=== PATIENT | male | born 1950 | race Caucasian/White ===

== ENCOUNTER 2024-03-22 07:15 | Emergency (ER) | payer MEDICARE, OTHER, SELFPAY ==
--- NOTE | ~2024-03-22 | XR_ITS ---
EXAMINATION: XR chest 2V DATE: 03/22/2024 08:34 INDICATION: Weakness and dizziness TECHNIQUE: frontal and lateral views of the chest were obtained. COMPARISON: Chest radiograph dated 06/23/2010 FINDINGS: The lungs remain clear with no focal airspace opacities, pulmonary edema, pleural effusion or pneumot horax. The cardiomediastinal silhouette is normal. Mild thoracic spondylosis. IMPRESSION: 1. No acute cardiopulmonary disease. Reviewed, dictated and finalized at location A.
[2024-03-22 07:15] VITALS: BP 164/75; PULSE 70; RESP 20; TEMP 36.4; O2SAT 100
--- NOTE | 2024-03-22 07:20 | ED.AMS ---
HPI - Altered Mental Status General Chief Complaint: Altered Mental Status Stated Complaint: ams Time Seen by Provider: 03/22/24 07:18 Source: patient and EMS Mode of arrival: EMS Limitations: no limitations History of Present Illness HPI narrative: 74 years old white male lives alone, came to the ED by ambulance because not feeling well and feeling tired for the last 2 days. Patient quit taking his diabetes medicine 4 weeks ago, diet controlled, 2 days ago found that his blood glucose went up to 300, start taking his diabetes medicine, today was 170. Patient denies any fever, chills, nausea, vomiting, chest pain, shortness of breath, headache, numbness, tingling or focal neuro deficit. Patient's friend at the bedside telling me that patient have trouble sleeping and would like me to give him some sleeping pills. Related Data Home Medications Medication Instructions Recorded Confirmed No Home Medications 01/08/20 05/06/20 Allergies Allergy/AdvReac Type Severity Reaction Status Date / Time No Known Allergies Allergy Verified 03/22/24 07:34 Review of Systems Review of Systems: All systems reviewed & are unremarkable except as noted in HPI and below PMFSH Past Medical History Medical History (Updated 03/22/24 @ 09:20 by Sherine Peres MD) Borderline diabetes per pt on the brink Pyloric stenosis (~195) Surgical History Surgical History H/O removal of cyst (~2001) hand and head 2001 H/O: vasectomy (~1999) History of ankle surgery (~2008) ORIF right, 2009 vega Family History Family History Mother Diabetes mellitus Cancer Heart disease Kidney disease Father Cancer Grandparent Cerebrovascular accident Heart disease Social History Social History Smoking status: Never smoker Alcohol intake: never Living arrangements: alone Occupation/Education: retired Additional occupation/education comments: [employer]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 Musculoskeletal: Normal range of motion, nontender back Neurologic: Alert and oriented ?3, TERRAZZO WORKER HELPER is normal as tested, no gross motor deficit Course Vital Signs Vital signs: Vital Signs Temperature 36.4 C L 03/22/24 07:15 Pulse Rate 70 03/22/24 07:15 Respiratory Rate 20 03/22/24 07:15 Blood Pressure 164/75 H 03/22/24 07:15 Pulse Oximetry 100 03/22/24 07:15 Oxygen Delivery Room Air 03/22/24 07:15 Temperature 36.4 C L 03/22/24 07:15 Pulse Rate 61 03/22/24 08:48 Respiratory Rate 16 03/22/24 08:48 Blood Pressure 154/72 H 03/22/24 08:48 Pulse Oximetry 98 03/22/24 08:48 Oxygen Delivery Room Air 03/22/24 07:15 MDM - Altered Mental Status MDM Narrative Medical decision making narrative: Differential diagnosis include uncontrolled diabetes, electrolyte imbalance, dehydration, urinary tract infection, stress related symptoms and depression Blood workup today showed blood glucose of 178, otherwise insignificant abnormality to explain patient tiredness. EKG on arrival to the ED showed normal s
--- NOTE | 2024-03-22 07:22 | ECG_ITS ---
Test Date: 2024-03-22 07:26:02 Measurements Intervals [place] Rate: 64 P: 47 MA: 169 QRS: -45 QRSD: 114 T: 14 QT: 394 QTc: 407 Interpretive Statements SINUS RHYTHM LEFT AXIS DEVIATION INCOMPLETE LEFT BUNDLE BRANCH BLOCK PATTERN CONSISTENT WITH PULMONARY DISEASE BASELINE ARTIFACT- I, II, AVR, AVL, AVF ABNORMAL ECG No previous ECG available for comparison Electronically Signed On 03-22-2024 12:41:27 CDT by Francisco J Antunez D.O.
[2024-03-22 07:33] VITALS: PULSE 70
[2024-03-22 07:52] LABS: Basophils Absolute Auto 0.1 K/mm3 (0.0-0.1); Basophils Percent Auto 1.7 % (0.2-1.2); Eosinophils Absolute Auto 0.6 K/mm3 (0-0.3); Eosinophils Percent Auto 9.3 % (0-4.4); Hematocrit 37.4 % (42.0-52.0); Immature Granulocyte Absolute 0.04 K/mm3 (0.00-0.031); Immature Granulocyte Percent A 0.7 % (0-0.5); Lymphocytes Percent Auto 14.9 % (18.3-44.2); Mean Corpuscular HGB Conc 34.8 g/dl (32-36); Mean Corpuscular Hemoglobin 29.3 pg (26-34); Mean Corpuscular Volume 84.4 fl (80-100); Mean Platelet Volume 9.4 fl (7.4-10.4); Monocytes Absolute Auto 0.5 K/mm3 (0.1-0.6); Monocytes Percent Auto 8.6 % (2.6-8.5); Neutrophils Absolute Auto 3.9 K/mm3 (1.3-6.7); Neutrophils Percent Auto 64.8 % (45.5-73.1); Platelet Count Result 244 k/mm3 (150-375); Red Blood Count 4.43 M/mm3 (4.6-6.20); Red Cell Distribution Width 13.4 % (11.5-14.5); White Blood Count 6.1 K/mm3 (4.5-10.0)
[2024-03-22 08:21] LABS: Alanine Aminotransferase 22 U/L (6-50); Albumin Level 4.2 g/dL (3.5-5.1); Alkaline Phosphatase 82 U/L (38-126); Anion Gap 12 mmol/L (4-12); Aspartate Amino Transferase 22 U/L (17-59); Bilirubin,Total 0.8 mg/dL (0.2-1.3); Blood Urea Nitrogen 24 mg/dL (9-20); Calcium 9.3 mg/dL (8.4-10.2); Carbon Dioxide 21 mmol/L (22-30); Chloride 106 mmol/L (98-107); Estimated CRCL calculation 83 ml/min; Estimated Glomerular Filt Rate > 60; Glucose 178 mg/dL (65-110); Sodium 139 mmol/L (137-145)
[2024-03-22 08:48] VITALS: BP 154/72; PULSE 61; RESP 16; O2SAT 98
[2024-03-22 08:56] LABS: Troponin I < 0.012 ng/mL (0.000-0.034)
[2024-03-22 09:01] LABS: Appearance Urine Clear (Clear); Bilirubin Urine Negative (Negative); Blood Urine Negative (Negative); Color Urine Yellow (Yellow); Glucose Urine UA Negative (Negative); Ketones Urine Negative (Negative); Leukocyte Esterase Ur Negative LEU/UL (Negative); Nitrate Urine Negative (Negative); Protein Urine Negative (Negative); Specific Grav Ur 1.016 (1.001-1.035)
[2024-03-22 09:07] LABS: Add Urine Microscopic? NO
[2024-03-22 09:23] VITALS: BP 142/91; PULSE 70; RESP 18; O2SAT 100
[2024-03-22 10:24] LABS: Glucose Point of Care 183 mg/dl (65-105)
== END 2024-03-22 10:20 | disposition home or self-care (01) ==
PROVIDERS: Emergency Provider Emergency Medicine; PCP Family Medicine
DX: R53.1 Weakness (principal); G47.00 Insomnia, unspecified; E11.9 Type 2 diabetes mellitus without complications; I44.7 Left bundle-branch block, unspecified; R94.31 Abnormal electrocardiogram [ECG] [EKG]
CPT/HCPCS: 36415; 71046; 80053; 81003; 82948; 84484; 85025; 93005; 99284

== ENCOUNTER 2025-03-27 14:33 | Emergency (ER) | payer OTHER, MEDICARE, SELFPAY ==
[2025-03-27] VITALS (21 sets, daily range): BP systolic 114–156; BP diastolic 60–86; PULSE 58–88; RESP 12–20; TEMP 36.4; O2SAT 92–100
--- NOTE | ~2025-03-27 | XR_ITS ---
. EXAMINATION: XR chest 2V 03/27/2025 15:07 INDICATION: Chest pain PROCEDURE: 2 view chest COMPARISON: 03/22/2024 FINDINGS: The lungs are clear. The cardiomediastinal silhouette is within normal limits. There are no pleural effusions. There is no pneumothorax suspected. IMPRESSION: 1: NO ACUTE CARDIOPULMONARY DISEASE. Reviewed, dictated and finalized at location B.
--- NOTE | 2025-03-27 14:37 | ECG_ITS ---
Test Date: 2025-03-27 14:46:39 Measurements Intervals [place] Rate: 65 P: 0 RI: 167 QRS: -55 QRSD: 114 T: -35 QT: 399 QTc: 415 Interpretive Statements SINUS RHYTHM INCOMPLETE LEFT BUNDLE BRANCH BLOCK Compared to ECG 03/22/2024 07:26:02 NO SIGNIFICANT CHANGES Electronically Signed On 03-27-2025 14:52:47 CDT by Ruiz Reed M.D.
--- OUTSIDE RECORDS SUMMARY | 2025-03-27 14:45 | XMS_ITS | Encounter Summary ---
Author Organization [facility] Address [address] [place] [address] Phone Care Team Providers Care Decorating Consultant Name Role Phone Natividad Almanza APRN, RISK TECH Primary Care Provid er Ludy Arnold RN Unavailable Unavailable Lázaro Saxena DO Unavailable [phone] Reason for Visit * Reason Comments Medication Refill Encounter Details Date Type Department Care Team (Late st Contact Info) Description 08/18/2023 Refill [facility] [address] [place] [address] Lázaro Saxena, DO [address] [place] [address] Medication Refill Social History Tobacco Use Types Packs/Day Years Used Date Smoking Tobacco: Never Smokeless Tobacco: Never Alcohol Use Standard Drinks/Week Comments Never 0 (1 standard drink = 0.6 oz pur e alcohol) PHQ-2 Answer Date Recorded Total Score - Questions 1-9 0 09/0 02/2022 Sex and Gender Information Value Date Recorded Sex Assigned at Male 04/25/2023 8:39 AM CDT Legal Sex Male 3:54 PM POWER BARKER OPERATOR Gender Identity Male 04/25/2023 8:39 AM CDT Sexual Orientation Not on file documented as of this encounter Miscellaneous Notes * Telephone Encounter - Carleen Ortega RN - 08/18/2023 8:15 AM CST Refill request from pharmacy. Please fill if appropriate. R BARKER OPERATOR documented in this encounter Plan of Treatment Not on file documented as of this encounter Visit Diagnoses Not on filedocumented in this encounter Care Teams Decorating Consultant Relationship Specialty Start Date End Date Natividad Almanza, ROADING ENGINEER, RISK TECH [address] [place] [address] PCP - General Advanced Practice Nurse 09/13/21 Ludy Arnold, [place] Oncology Nurse Navigator Oncology 10/04/21 Lázaro Saxena DO [address] [facility] [place] [id number] Consulting Physician Oncology 02/28/23 documented as of this encounter
--- OUTSIDE RECORDS SUMMARY | 2025-03-27 14:45 | XMS_ITS | Encounter Summary ---
Author Organization [facility] Address [address] [place] [address] Phone Care Team Providers Care Transportation Clerk Name Role Phone Natividad Almanza APRN, TARE MAN Primary Care Provid er Ludy Arnold RN Unavailable Unavailable Lázaro Saxena DO Unavailable [phone] Reason for Visit * Reason Comments Medication Refill Encounter Details Date Type Department Care Team (Late st Contact Info) Description 11/25/2023 Refill [facility] [place] [address] [place] [address] Lázaro Saxena, DO [address] [place] [address] Medication Refill Social History Tobacco [...] AM CDT Legal Sex Male 3:54 PM 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 Please fill if appropriate. documented in this encounter Plan of Treatment Not on file documented as of this encounter Visit Diagnoses Not on filedocumented in this encounter Care Teams Transportation Clerk Relationship Specialty Start Date End Date Natividad Almanza APRN, TARE MAN [address] [place] [address] PCP - General Advanced Practice Nurse 09/13/21 Ludy Arnold RN [place] Oncology Nurse Navigator Oncology 10/04/21 Lázaro Saxena DO [address] [place] [id number] Consulting Physician Oncology 02/28/23 documented as of this encounter
--- OUTSIDE RECORDS SUMMARY | 2025-03-27 14:45 | XMS_ITS | Encounter Summary ---
Author Organization [facility] Address [address] [place] [address] Phone Care Team Providers Care Stem Roller Operator Name Role Phone Natividad Almanza APRN, LITHOGRAPHIC RETOUCHER APPRENTICE Primary Care Provid er Ludy Arnold RN Unavailable Unavailable Lázaro Saxena DO Unavailable [phone] Reason for Visit * Reason Comments Medication Refill Encounter Details Date Type Department Care Team (Late st Contact Info) Description 03/01/2023 Refill [facility] [place] [address] [place] [address] Tomasa Figueroa, PAC Medication Refill Social History Tobacco Use Types [...] AM CDT Legal Sex Male 3:54 PM SAP BUSINESS INTELLIGENCE CONSULTANT Gender Identity Male 04/25/2023 8:39 AM CDT Sexual Orientation Not on file COVID-19 Exposure Response Date Recorded In the last 10 days, have yo u been in contact with someone who was confirmed or suspected to have Coronavirus/COVID-19? No / Unsure 02/28/2023 7:56 AM CDT documented as of this encounter Miscellaneous Notes * Telephone Encounter - Carleen Ortega RN - 03/01/2023 9:49 AM CDT Refill request from pharmacy. Please fill if appropriate. documented in this encounter Plan of Treatment Not on file documented as of this encounter Visit Diagnoses Not on filedocumented in this encounter Care Teams Stem Roller Operator Relationship Specialty Start Date End Date Natividad Almanza, WHEEL PRESS CLERK, LITHOGRAPHIC RETOUCHER APPRENTICE [address] [place] [address] PCP - General Advanced Practice Nurse 09/13/21 Ludy Arnold RN [place] Oncology Nurse Navigator Oncology 10/04/21 Lázaro Saxena DO [address] [place] [address] Consulting Physician Oncology 02/28/23 documented as of this encounter
--- OUTSIDE RECORDS SUMMARY | 2025-03-27 14:45 | XMS_ITS | Clinical Summary ---
Author Organization [facility] Address [address], [facility] [address] [place] [address] Phone Care Team Providers Care Carbonator Name Role Phone Natividad Almanza APRN, LEGAL EXAMINER Primary Care Provid er Ludy Arnold RN Unavailable Unavailable Lázaro Saxena DO Unavailable [phone] Allergies Active Allergy Reactions Criticality Noted Date Comments Rosuvastatin Other (see Comments) Medium 08/02/2021 Leg cramps Medications aspirin EC 81 MG Tablet Delayed Response Take 81 mg by mouth daily. Active lisinopril (PRINIVIL, ZESTRIL) 5 MG Tablet 05/03/2022 Active phenazopyridine (PYRIDIUM) 100 MG Tablet TAKE 1 TABLET BY MOUTH THREE TIMES DAILY NEEDED FOR PAIN 05/31/2022 Active metFORMIN (GLUCOPHAGE-XR) 500 MG TABLET SR 24 HR 500 mg daily. 09/27/2022 Activ e tolterodine (DETROL LA) 4 MG CAPSULE SR 24 HR 11/29/2022 Active OneTouch Ultra Strip USE TO CHECK BLOOD SUGAR EVERY MORNING AND EVERY NIGHT AT BEDTIME AND ALSO BEFORE EACH MEAL 04/14/2023 Active CINNAMON PO Take by mouth. Active predniSONE (DELTASONE) 5 MG TabletIndicatio ns:Prostate cancer (HCC) TAKE 1 TABLET BY MOUTH TWICE DAILY WITH FOOD 60 Tablet 3 07/04/2023 Active glipiZIDE (GLUCOTROL XL) 10 MG TABLET SR 24 HR 06/25/2023 Active abiraterone (ZYTIGA) 250 MG TabletIndicatio ns:Prostate cancer (HCC) TAKE 4 TABLETS BY MOUTH 1 TIME A DAY 120 Tablet 4 08/16/2023 Active tamsulosin (FLOMAX) 0.4 MG Capsule TAKE 2 CAPSULES BY MOUTH DAILY 60 Capsule 1 11/25/2024 Active Active Problems Problem Noted Date Diagnosed Date Prostate cancer 09/21/2021 Hx of transient ischemic attack (TIA) 08/02/2021 Diabetes mellitus 02/02/2021 Hypertension 11/03/2020 Transient alteration of awareness 05/31/2020 Overview (12/27/2021): Last Assessment & Plan: Patient experienced a recent transient alteration of awareness lasting about 30 minutes. By the time he had presented to [facility] he has his sensorium it normalized. During his hospitalization he underwent cerebrovascular and cardiovascular evaluations in addition to EEG, CT, and MRI all of which was normal. He remained cognitively normal during his hospitalization. He was ultimately discharged home on treatment for hypertension hypercholesterolemia and an aspirin daily which he has continued since and has remained asymptomatic. From review of his [facility] records it appears that there was suspicion that he may have had a TIA. At this time he enjoys a normal neurological examination. I would recommend continuing his present medical regimen at this time. I will see him back in the office as needed. Hyperglycemia 05/31/2020 Hypercholesterolemia 05/31/2020 Immunizations Immunization Administration Dates Next Due Influenza, High-dose, Quadrivalent 06/17/2023 Influenza, Quadrivalent, Adjuvanted 06/16/2022,1 Pneumococcal conjugate PCV20 , polysaccharide [id number] conjugate, adjuvant, PF 06/27/2022 TDAP Vaccine 05/06/2021 Zoster Vaccine Recombinant 07/27/2021,05/24/2021 Family History Medical History Relation Name Comments Lung Cancer Brother 1 Prostate Cancer Father Heart Disease Maternal Grandfather Stroke Maternal Grandfather Congestive Heart Failure Maternal Grandmother Congestive Heart Failure Mother Diabetes Mother Heart Attack Paternal Grandfather Parkinsonism Paternal Grandmother Rheumatoid Arthritis Sister Relation Name Status Comments Brother 1 Brother 2 Other suicide Father Maternal Grandfather Maternal Grandmother Mother Paternal Grandfather Paternal Grandmother Sister Social History Tobacco Use Types Packs/Day Years Used Date Smoking Tobacco: Never Smokeless Tobacco: Never Tobacco Cessation:Counseling Given: Not Answered Alcohol Use Standard Drinks/Week Comments Never 0 (1 standard drink = 0.6 oz pur e alcohol) PHQ-2 Answer Date Recorded Total Score - Questions 1-9 0 02/2022 Sex and Gender Information Value Date Recorded Sex Assigned at Male 04/25/2023 8:39 AM CDT Legal Sex Male 3:54 PM EXTERMINATOR HELPER Gender Identity Male 04/25/2023 8:39 AM CDT Sexual Orientation Not on file Last Filed Vital Signs Vital Sign Reading Time Taken Comments Blood Pressure 138/70 10/10/2023 8:11 AM EXTERMINATOR HELPER Pulse 89 10/10/2023 8:11 AM EXTERMINATOR HELPER Temperature 36.3 C (97.3 F) 10/10/2023 8:11 AM EXTERMINATOR HELPER Respiratory Rate 18 10/10/2023 8:11 AM EXTERMINATOR HELPER Oxygen Saturation 97% 10/10/2023 8:11 AM EXTERMINATOR HELPER Inhaled Oxygen Concentration - - Weight 101.2 kg (223 lb 3.2 oz) 10/10/2023 8:11 AM EXTERMINATOR HELPER Height 177.8 cm (5' 10) 10/10/2023 8:11 AM EXTERMINATOR HELPER Body Mass Index 32.03 10/10/2023 8:11 AM EXTERMINATOR HELPER Plan of Treatment Health Maintenance Due Date Last Done Comments Diabetes: Eye Exam 1950 Diabetes: Foot Exam 1950 Hepatitis C Virus (HCV) Screening 1950 Cologuard 02/13/1996 Colonoscopy 02/13/1996 Colorectal Cancer Screening 02/13/1996 Immunochemical Fecal Occult Blood 02/13/1996 Respiratory Syncytial Virus (RSV) Immunization (Adult) (1 - Risk 60-74 years 1-dose series) 2011 Diabetes: Hemoglobin A1c 01/09/202407/10/2 023, 03/27/2023, 12/26/2022, Additional history exists SARS-COV-2 Immunization ( season) 2024 06/17/2023, 05/29/2022, 10/18/2021, Additional history exists Diabetes: Nephropathy Screening 10/10/2024 10/10/2023, 09/12/2023, 08/15/2023, Additional history exists Influenza Immunization (#1) 2025 10/0 03/2023, 06/16/2022, 06/19/2021 Td Immunization Every 10 Years (Adults With 1 Tdap) 05/06/2031 05/06/2021 DTaP/Tdap/Td Immunization Discontinued 05/06/2021 Zoster Immunization Completed 07/27/2021, Pneumococcal Immunization (50+ years) Completed 06/27/2022 Hepatitis B Immunization Aged Out No longer eligible based on patient's age to complete this topic Human Papillomavirus (HPV) Immunization Aged Out No longer eligible based on patient's age to complete this topic Meningococcal Immunization (ACWY) Aged Out No longer eligible based on patient's age to complete this topic Rotavirus Immunization Aged Out No lo nger eligible based on patient's age to complete this topic Procedures Procedure Name Priority Date/Time Associated Diagnosis Comments CMP (COMPREHENSIVE METABOLIC PANEL) Routine 10/10/2023 8:02 AM EXTERMINATOR HELPER Prostate cancer (HCC) HEMOGLOBIN A1C [place] 1453 Routine 06/21/2022 9:26 AM CDT from Last 3 Months or Most Recently Relevant to Health Maintenance Results * (ABNORMAL) CMP (COMPREHENSIVE METABOLIC PANEL) (10/10/2023 8:02 AM EXTERMINATOR HELPER) Glucose 204(H) 70 - 105 mg/dL [facility] Blood Urea Nitrogen 21 7 - 25 mg/dL [facility] Creatinine 0.8 0.7 - 1.3 mg/dL [facility] Sodium 143 136 - 145 mEq/L [facility] Potassium 4.4 3.5 - 5.1 mEq/L [facility] Chloride 105 98 - 107 mEq/L [facility] Bicarbonate 31 21 - 31 mEq/L [facility] Total Bilirubin 0.4 0.3 - 1.0 mg/dL [facility] Alk. Phosphatase 71 34 - 104 U/L [facility] Aspartate Aminotransferase 9(L) 13 - 39 U/L [facility] Alanine Aminotransferase 10 7 - 52 U/L [facility] Total Protein 6.3(L) 6.4 - 8.9 g/dL [facility] Albumin 3.7 3.5 - 5.7 g/dL [facility] Calcium 9.0 8.6 - 10.3 mg/dL CANCER INDUSTRIAL SALES REPRESENTATIVE ON LICENSE OF [facility] Anion Gap 11.4 7.0 - 15.0 mEq/L CANCER INDUSTRIAL SALES REPRESENTATIVE ON LICENSE OF [facility] Globulin 2.6 2.0 - 3.5 g/dL CANCER INDUSTRIAL SALES REPRESENTATIVE ON LICENSE OF [facility] EGFR 94 >60 ml/min/1. 73m2 CANCER INDUSTRIAL SALES REPRESENTATIVE ON LICENSE OF [facility] Comment: This eGFR is calculated using 2020 CKD-EPI Creatinine equation without race modifier based on the NKF-ASN task force recommendations Blood 10/10/2023 8:02 AM EXTERMINATOR HELPER Narrative CANCER INDUSTRIAL SALES REPRESENTATIVE ON LICENSE OF [facility] - 10/10/2023 9:00 AM EXTERMINATOR HELPER Release to patient->Immediate IS THE PATIENT REQUIRED TO BE FASTING FOR 8 HOURS?->No Lyly Acharya APRN, LEGAL EXAMINER CHEMISTRY ORDERABLES Final Result Performing Organization Address [facility] Co de Phone Number CANCER INDUSTRIAL SALES REPRESENTATIVE ON LICENSE OF [facility] [address] [place] [address], * (ABNORMAL) HEMOGLOBIN A1C [place] 1453 (06/21/2022 9:26 AM CDT) HEMOGLOBIN A1C 7.5(H) 4.8 - 5.6 % [facility] Comment: PREDIABETES: 5.7 - 6.4 DIABETES: >6.4 GLYCEMIC CONTROL FOR ADULTS WITH DIABETES: <7.0 06/21/2022 9:26 AM CDT Narrative [facility] - 06/22/2022 4:06 AM CDT TESTING PERFORMED AT: [] [facility], [address] [place] [address], [place], [address], PHONE: [phone], VAC PRESS OPERATOR: EDISON GARCÍA, PHD us Lázaro Saxena DO LAB SEND OUTS Final Result [facility] from Last 3 Months or Most Recently Relevant to Health Maintenance Insurance MEDICARE [facility] [id number] Advance Directives * Full Code (Latest Code Status on File) Date Activated Date Inactivated Comments 09/28/2021 9:00 AM PER 09/21/21 OF FICE VISIT NOTE. Care Teams Carbonator Relationship Specialty Start Date End Date Natividad Almanza, APPLICATION PACKAGING SPECIALIST, LEGAL EXAMINER [address] [address] PCP - General Advanced Practice Nurse 09/13/21 Ludy Arnold RN [place] Oncology Nurse Navigator Oncology 10/04/21 Lázaro Saxena DO [address] [place] [address] Consulting Physician Oncology 02/28/23
--- OUTSIDE RECORDS SUMMARY | 2025-03-27 14:45 | XMS_ITS | Encounter Summary ---
Author Organization [facility] Address [address] [place] [address] Phone Care Team Providers Care Director Of Investigations Name Role Phone Natividad Almanza APRN, TOOL AND DIE SUPERVISOR Primary Care Provid er Ludy Arnold RN Unavailable Unavailable Lázaro Saxena DO Unavailable [phone] Reason for Visit * Reason Comments Medication Refill Encounter Details Date Type Department Care Team (Late st Contact Info) Description 03/01/2023 Refill [facility] [address] [address] Tomasa Figueroa, PAC Medication Refill Social [...] AM CDT Legal Sex Male 3:54 PM PBX INSTALLER Gender Identity Male 04/25/2023 8:39 AM CDT Sexual Orientation Not on file COVID-19 Exposure Response Date Recorded In the last 10 days, have yo u been in contact with someone who was confirmed or suspected to have Coronavirus/COVID-19? No / Unsure 02/28/2023 7:56 AM CDT documented as of this encounter Plan of Treatment Not on file documented as of this encounter Visit Diagnoses Not on filedocumented in this encounter Care Teams Director Of Investigations Relationship Specialty Start Date End Date Natividad Almanza APRN, TOOL AND DIE SUPERVISOR [address] [place] [address] PCP - General Advanced Practice Nurse 09/13/21 Ludy Arnold RN [place] Oncology Nurse Navigator Oncology 10/04/21 Lázaro Saxena DO [address] [place] [id number] Consulting Physician Oncology 02/28/23 documented as of this encounter
--- OUTSIDE RECORDS SUMMARY | 2025-03-27 14:45 | XMS_ITS | Encounter Summary ---
Author Organization [facility] Address [facility] [place] [address] Care Team Providers Care Web Site Developer Name Role Phone Natividad Almanza NP Primary Care Provider [phone] Lázrao Saxena DO Unavailable [phone] Carmelo Kent MD Unavailable Lázaro Saxena DO Unavailable Encounter Details Date Type Department Care Team (Late st Contact Info) Description 02/24/2022 STARFACE Message [facility] - [place] [address] [facility] [address] [place], [place] [phone] Natividad Almanza NP [address] [place], [place] [address] Follow up on lab results Social History Tobacco Use Types Packs/Day Years Used Date Smoking Tobacco: Never Smokeless Tobacco: Never Comments:The provider can pr ovide you with more information about quitting. Alcohol Use Standard Drinks/Week Comments Not Currently 0 (1 standard drink = 0.6 oz pur e alcohol) PHQ-2 Answer Date Recorded PHQ-2 Score - If the patient scores above 3, please move on to questions 3-9 0 09/07/2021 Sex and Gender Information Value Date Recorded Sex Assigned at Male 11/12/2024 7:19 AM CULTURAL ANTHROPOLOGY PROFESSOR Legal Sex Male 4:09 PM CULTURAL ANTHROPOLOGY PROFESSOR Gender Identity Not on file Sexual Orientation Not on file COVID-19 Exposure Response Date Recorded In the last 10 days, have yo u been in contact with someone who was confirmed or suspected to have Coronavirus/COVID-19? No / Unsure 02/03/2022 10:45 AM CDT documented as of this encounter Plan of Treatment Upcoming Encounters Date Type Department Care Team (Late st Contact Info) Description 05/14/2025 8:00 AM CDT Office Visit [facility] Family [facility] [address] [address] Natividad Almanza NP [address] [place] [address] 08/19/2025 9:30 AM CULTURAL ANTHROPOLOGY PROFESSOR Appointment [facility] Radiation Oncology [address] [place] [address] Carmelo Kent MD [address] [place] [address] [address] [place] [address] 03/24/2026 10:30 AM CDT Office Visit [facility] - [place] [address] [place] [address] Natividad Almanza NP [address] [place] [phone] documented as of this encounter Visit Diagnoses Not on filedocumented in this encounter Additional Health Concerns Assessment Noted Time PHQ-9 Depression Total Score: 0 09/07/20 21 7:57 AM CULTURAL ANTHROPOLOGY PROFESSOR documented as of this encounter Care Teams Web Site Developer Relationship Specialty Start Date End Date Natividad Almanza NP [address] [place] [phone] PCP - General NURSE PRACTITIONER 03/09/21 Lázaro Saxena DO [address] [place] [phone] Consulting Physician MEDICAL ONCOLOGY 09/13/21 10/14/22 Carmelo Kent MD 1 [place] [address] Consulting Physician RADIATION ONCOLOGY 02/06/24 Lázaro Saxena DO 1 [place] [address] Consulting Physician ONCOLOGY 02/13/24 [facility] [address] [place] [address] 02/02/25 documented as of this encounter
--- OUTSIDE RECORDS SUMMARY | 2025-03-27 14:45 | XMS_ITS ---
Author Organization [facility] Address [address], [facility] [address] [place] [address] Phone Care Team Providers Care Credit Authorizer Name Role Phone Natividad Almanza APRN, DATE NIGHT CAREGIVER Primary Care Provid er Ludy Arnold RN Unavailable Unavailable Hemanth Lázaro D DO Unavailable [phone] Active Problems Problem Noted Date Diagnosed Date Prostate cancer 09/21/2021 Hx of transient ischemic attack (TIA) 08/02/2021 Diabetes mellitus 02/02/2021 Hypertension 11/03/2020 Transient alteration of awareness 05/31/2020 Overview (12/27/2021): Last Assessment & Plan: Patient experienced a recent transient alteration of awareness lasting about 30 minutes. By the time he had presented to [facility] he has his sensorium it normalized. During his hospitalization he underwent cerebrovascular and cardiovascular evaluations in addition to EEG, CT, and MRI all of which was normal. He remained cognitively normal during his hospitalization. He was ultimately discharged home on treatment for hypertension hypercholesterolemia and an aspirin daily which he has continued since and has remained asymptomatic. From review of his [facility] records it appears that there was suspicion that he may have had a TIA. At this time he enjoys a normal neurological examination. I would recommend continuing his present medical regimen at this time. I will see him back in the office as needed. Hyperglycemia 05/31/2020 Hypercholesterolemia 05/31/2020 Current Treatment and Therapy Plans [facility]: Leuprolide (Lupron, Eligard) / Triptorelin (Trelstar) - 3 Month - Prostate* Plan Start Date:09/27/2021 Plan Provider:Lázaro Saxena DO Linked Problems Prostate cancer (HCC) Treatment Medications No medications scheduled. PROSTATE - ORAL ABIRATERONE - [facility]* Plan Start Date:09/22/2021 Plan Provider:Lázaro Saxena DO Linked Problems Prostate cancer (HCC) Treatment Medications Current Day (Day 1 , Cycle 5 - Dose increase to 1000mg - Planned for 01/25/2022) Next Day (Day 1, Cycle 6 - Planned for 03/04/2022) abiraterone (ZYTIGA) abiraterone (ZYTIGA ) 250 MG Tablet abiraterone (ZYTIGA) 250 MG Tablet Past Treatment and Therapy Plans ONCOLOGY TREATMENT Plan Name Start Date Discontinue Date Treatment Medications Discontinue Reason Plan Provider Cycles [facility]: Leuprolide (Lupron) / Triptorelin (Trelstar) - 3 Month - Breast 2 09/21/2021 No medications scheduled. Plan Clean Up Lázaro Saxena, Treatment not started
--- OUTSIDE RECORDS SUMMARY | 2025-03-27 14:45 | XMS_ITS | Encounter Summary ---
Author Organization [facility] Address [address] [place] [address] Phone Care Team Providers Care Sap Pi Developer Name Role Phone Natividad Almanza APRN, TUBER MACHINE OPERATOR HELPER Primary Care Provid er Ludy Arnold RN Unavailable Unavailable Lázaro Saxena DO Unavailable [phone] Reason for Visit * Reason Comments Medication Refill Encounter Details Date Type Department Care Team (Late st Contact Info) Description 06/01/2023 Refill [facility] [address] [place] [address] Lázaro Saxena, DO [address] [place] [address] Medication Refill Social History Tobacco [...] AM CDT Legal Sex Male 3:54 PM HISTOLOGY AIDE Gender Identity Male 04/25/2023 8:39 AM CDT Sexual Orientation Not on file COVID-19 Exposure Response Date Recorded In the last 10 days, have yo u been in contact with someone who was confirmed or suspected to have Coronavirus/COVID-19? No / Unsure 05/23/2023 8:32 AM CDT documented as of this encounter Plan of Treatment Not on file documented as of this encounter Visit Diagnoses Not on filedocumented in this encounter Care Teams Sap Pi Developer Relationship Specialty Start Date End Date Natividad Almanza APRN, TUBER MACHINE OPERATOR HELPER [address] [place] [address] PCP - General Advanced Practice Nurse 09/13/21 Ludy Arnold RN [place] Oncology Nurse Navigator Oncology 10/04/21 Lázaro Saxena DO [address] [place] [phone] Consulting Physician Oncology 02/28/23 documented as of this encounter
--- OUTSIDE RECORDS SUMMARY | 2025-03-27 14:45 | XMS_ITS | Clinical Summary ---
Author Organization [facility] Address [address] [place] [address] Phone Care Team Providers Care Pullman Car Repairer Name Role Phone Corby Brown MD Primary Care Provider [phone] Allergies No known active allergies Medications No known medications Active Problems Problem Noted Date Diagnosed Date Transient alteration of awareness 05/31/2020 Hypercholesterolemia 05/31/2020 Elevated serum creatinine 05/31/2020 Hyperglycemia 05/31/2020 Syncope 05/30/2020 Hypertensive emergency Acute confusion Social History Tobacco Use Types Packs/Day Years Used Date Smoking Tobacco: Never Smokeless Tobacco: Never Sex and Gender Information Value Date Recorded Sex Assigned at Not on file Legal Sex Male 6:25 PM CDT Gender Identity Not on file Sexual Orientation Not on file Last Filed Vital Signs Vital Sign Reading Time Taken Comments Blood Pressure 154/85 06/01/2020 2:00 PM CDT Pulse 61 06/01/2020 2:00 PM CDT Temperature 35.9 C (96.7 F) 06/01/2020 7:44 AM CDT Respiratory Rate 16 06/01/2020 7:44 AM CDT Oxygen Saturation 98% 06/01/2020 2:00 PM CDT Inhaled Oxygen Concentration - - Weight 90.7 kg (200 lb) 05/30/2020 6:30 PM CDT Height 182.9 cm (6') 05/30/2020 6:30 PM CDT Body Mass Index 27.12 05/30/2020 6:30 PM CDT Plan of Treatment Health Maintenance Due Date Last Done Comments DTAP/TDAP/TD VACCINES (1 - Tdap) 1970 COLORECTAL SCREENING 02/13/1996 Colorectal Cancer Screening 02/13/1996 FIT-DNA Q 3 years 02/13/1996 FIT/FOBT Q 1 year 02/13/1996 Flex Sig/CT Colonography Q 5 years 02/13/1996 PNEUMOCOCCAL VACCINE 50+ YEARS (1 of 1 - PCV) 02/13/20 ZOSTER VACCINE (1 of 2) 2001 INFLUENZA VACCINE (#1) 2025 RSV VACCINE (60+ or ) (1 - 1-dose 75+ series) 2026 Insurance MEDICARE PART A [place] B [place] [facility] [place] [place] [id number] Advance Directives For more information, please contact: [phone] * Full Code (Latest Code Status on File) Date Activated Date Inactivated Comments 05/31/2020 4:56 AM 06/01/2020 5:20 PM Care Teams Pullman Car Repairer Relationship Specialty Start Date End Date Corby Brown MD [address] [place] [address] PCP - General Family Practice 05/31/20
--- OUTSIDE RECORDS SUMMARY | 2025-03-27 14:45 | XMS_ITS | Encounter Summary ---
Author Organization [facility] Address [address] [place] [address] Phone Care Team Providers Care Boiler Repairman Name Role Phone Natividad Almanza APRN, PROFESSOR OF SPANISH Primary Care Provid er Ludy Arnold RN Unavailable Unavailable Lázaro Saxena DO Unavailable [phone] Reason for Visit * Reason Comments Medication Refill Encounter Details Date Type Department Care Team (Late st Contact Info) Description 07/04/2023 Refill [facility] [address] [place] [phone] Sarah Song, GAURANG, PROFESSOR OF SPANISH [address] [place] [address] Medication Refill Social History Tobacco Use Types [...] AM CDT Legal Sex Male 3:54 PM TRANSPORTATION MAINTENANCE OPERATOR Gender Identity Male 04/25/2023 8:39 AM CDT Sexual Orientation Not on file COVID-19 Exposure Response Date Recorded In the last 10 days, have yo u been in contact with someone who was confirmed or suspected to have Coronavirus/COVID-19? No / Unsure 06/20/2023 8:43 AM CDT documented as of this encounter Miscellaneous Notes * Telephone Encounter - Carleen Ortega, RN - 07/04/2023 7:50 AM CDT Refill request from pharmacy. Please fill if appropriate. documented in this encounter Plan of Treatment Not on file documented as of this encounter Visit Diagnoses Diagnosis Prostate cancer (HCC) Malignant neoplasm of prostate documented in this encounter Care Teams Boiler Repairman Relationship Specialty Start Date End Date Natividad Almanza, MANAGER PEOPLE, PROFESSOR OF SPANISH [address] [place] [address] PCP - General Advanced Practice Nurse 09/13/21 Ludy Arnold RN [place] Oncology Nurse Navigator Oncology 10/04/21 Lázaro Saxena DO [address] [place] [phone] Consulting Physician Oncology 02/28/23 documented as of this encounter
--- OUTSIDE RECORDS SUMMARY | 2025-03-27 14:45 | XMS_ITS | Encounter Summary ---
Author Organization [facility] Address [address] [place] [address] Phone Care Team Providers Care Procedures Nurse Name Role Phone Natividad Almanza APRN, GLOVE OPERATOR Primary Care Provid er Ludy Arnold RN Unavailable Unavailable Lázaro Saxena DO Unavailable [phone] Reason for Visit * Reason Comments Medication Refill Encounter Details Date Type Department Care Team (Late st Contact Info) Description 02/17/2023 Refill [facility] [address] [place] [address] Lázaro Saxena, DO [address] [place] [address] Medication Refill Social History Tobacco [...] AM CDT Legal Sex Male 3:54 PM PRODUCT RESPONSIBILITY LIAISON Gender Identity Male 04/25/2023 8:39 AM CDT Sexual Orientation Not on file COVID-19 Exposure Response Date Recorded In the last 10 days, have yo u been in contact with someone who was confirmed or suspected to have Coronavirus/COVID-19? No / Unsure 01/31/2023 8:00 AM CDT documented as of this encounter Miscellaneous Notes * Telephone Encounter - Carleen Ortega RN - 02/17/2023 7:58 AM CDT Refill request from pharmacy. Please fill if appropriate. documented in this encounter Plan of Treatment Not on file documented as of this encounter Visit Diagnoses Diagnosis Prostate cancer (HCC) Malignant neoplasm of prostate documented in this encounter Care Teams Procedures Nurse Relationship Specialty Start Date End Date Natividad Almanza, PRESCHOOL HEAD TEACHER, GLOVE OPERATOR [address] [place] [address] PCP - General Advanced Practice Nurse 09/13/21 Ludy Arnold RN [place] Oncology Nurse Navigator Oncology 10/04/21 Lázaro Saxena DO [address] [place] [phone] Consulting Physician Oncology 02/28/23 documented as of this encounter
--- OUTSIDE RECORDS SUMMARY | 2025-03-27 14:45 | XMS_ITS | Clinical Summary ---
Author Organization [facility] Address [address] [place] [phone] Care Team Providers Care Business Rules Developer Name Role Phone Corby Brown MD Primary Care Provider [phone] Allergies No known active allergies Medications lisinopriL (PRINIVIL,ZESTR IL) 10 mg tablet TK 1 T PO BID FOR BP 0 Active rosuvastatin (CRESTOR) 5 mg tablet TK 1 T PO D FOR CHOLESTEROL 0 Active aspirin 81 mg enteric coated tablet Take 81 mg by mouth daily Active Active Problems Problem Noted Date Diagnosed Date Transient alteration of awareness 07/21/2020 Assessment & Plan (07/21/2020 3:22 PM DYE AND CHEMICAL COORDINATOR): Patient experienced a recent transient alteration of awareness lasting about 30 minutes. By the time he had presented to [facility] he has his sensorium it normalized. During his hospitalization he underwent cerebrovascular and cardiovascular evaluations in addition to EEG, CT, and MRI all of which was normal. He remained cognitively normal during his hospitalization. He was ultimately discharged home on treatment for hypertension hypercholesterolemia and an aspirin daily which he has continued since and has remained asymptomatic. From review of his [facility] records it appears that there was suspicion that he may have had a TIA. At this time he enjoys a normal neurological examination. I would recommend continuing his present medical regimen at this time. I will see him back in the office as needed. Surgical History Surgery Date Site/Laterality Comments VASECTOMY Medical History Medical History Date Comments Diabetes (HCC) High cholesterol Family History Medical History Relation Name Comments Suicidality Brother 1 Lung cancer Brother 2 Prostate cancer Father Diabetes Mother Heart failure Mother Rheum arthritis Sister Relation Name Status Comments Brother 1 Brother 2 Father Mother Sister Alive Social History Tobacco Use Types Packs/Day Years Used Date Smoking Tobacco: Never Smokeless Tobacco: Never Personal Safety Answer Date Recorded Getting School Help Needed Not on file 11/05 Sex and Gender Information Value Date Recorded Sex Assigned at Not on file Legal Sex Male 12:54 AM DYE AND CHEMICAL COORDINATOR Gender Identity Not on file Sexual Orientation Not on file Obstetrics History Last Filed Vital Signs Vital Sign Reading Time Taken Comments Blood Pressure 118/66 07/21/2020 2:25 PM DYE AND CHEMICAL COORDINATOR Pulse 92 07/21/2020 2:25 PM DYE AND CHEMICAL COORDINATOR Temperature 36.4 C (97.5 F) 07/21/2020 2:25 PM DYE AND CHEMICAL COORDINATOR Respiratory Rate - - Oxygen Saturation - - Inhaled Oxygen Concentration - - Weight 102.8 kg (226 lb 9.6 oz) 07/21/2020 2:25 PM DYE AND CHEMICAL COORDINATOR Height 180.3 cm (5' 11) 07/21/2020 2:25 PM DYE AND CHEMICAL COORDINATOR Body Mass Index 31.6 07/21/2020 2:25 PM DYE AND CHEMICAL COORDINATOR Plan of Treatment Not on file Insurance COMMERCIAL GENERIC MEDICARE MEDICARE COMMERCIAL GENERIC Care Teams Business Rules Developer Relationship Specialty Start Date End Date Corby Brown MD [address] [place] [address] PCP - General Family Medicine 07/21/20
--- OUTSIDE RECORDS SUMMARY | 2025-03-27 14:45 | XMS_ITS | Referral Summary ---
Author Organization [facility] [place] [facility] Address [address] [place] [phone] Care Team Providers Care Box Office Clerk Name Role Phone Corby Brown MD Primary Care Provider [phone] Allergies No known active allergies Medications lisinopriL [...] 07/21/2020 Assessment & Plan (07/21/2020 3:22 PM LANDSCAPE ENGINEER): Patient experienced a recent transient alteration of awareness lasting about 30 minutes. By the time he had presented to [facility] he has his sensorium it normalized. During his hospitalization he underwent cerebrovascular and cardiovascular evaluations in addition to EEG, CT, and MRI all of which was normal. He remained cognitively normal during his hospitalization. He was ultimately discharged home on treatment for hypertension hypercholesterolemia and an aspirin daily which he has continued since and has remained asymptomatic. From review of his [facility] records it appears that there was suspicion that he may have had a TIA. At this time he enjoys a normal neurological examination. I would recommend continuing his present medical regimen at this time. I will see him back in the office as needed. Social History Tobacco Use Types Packs/Day Years Used Date Smoking Tobacco: Never Smokeless Tobacco: Never Personal Safety Answer Date Recorded Getting School Help Needed Not on file 11/05 Sex and Gender Information Value Date Recorded Sex Assigned at Not on file Legal Sex Male 12:54 AM LANDSCAPE ENGINEER Gender Identity Not on file Sexual Orientation Not on file Last Filed Vital Signs Vital Sign Reading Time Taken Comments Blood Pressure 118/66 07/21/2020 2:25 PM LANDSCAPE ENGINEER Pulse 92 07/21/2020 2:25 PM LANDSCAPE ENGINEER Temperature 36.4 C (97.5 F) 07/21/2020 2:25 PM LANDSCAPE ENGINEER Respiratory Rate - - Oxygen Saturation - - Inhaled Oxygen Concentration - - Weight 102.8 kg (226 lb 9.6 oz) 07/21/2020 2:25 PM LANDSCAPE ENGINEER Height 180.3 cm (5' 11) 07/21/2020 2:25 PM LANDSCAPE ENGINEER Body Mass Index 31.6 07/21/2020 2:25 PM LANDSCAPE ENGINEER Plan of Treatment Not on file Insurance COMMERCIAL GENERIC MEDICARE MEDICARE COMMERCIAL GENERIC Care Teams Box Office Clerk Relationship Specialty Start Date End Date Corby Brown MD [address] [place] [phone] PCP - General Family Medicine 07/21/20
--- OUTSIDE RECORDS SUMMARY | 2025-03-27 14:45 | XMS_ITS | Encounter Summary ---
Author Organization [facility] Address [facility] [place] [address] Care Team Providers Care Coal Shooter Name Role Phone Natividad Almanza NP Primary Care Provider [phone] Lázaro Saxena DO Unavailable [phone] Carmelo Kent MD Unavailable Lázaro Saxena DO Unavailable [phone] Encounter Details Date Type Department Care Team (Late st Contact Info) Description 09/01/2021 VM Discovery Message Enc [facility] - [facility] [address] [facility] [address] [place] [address] Dylan Castaneda MD Cat scan Social History Tobacco Use Types Packs/Day Years Used Date Smoking Tobacco: Never Smokeless Tobacco: Never Comments:The provider can pr ovide you with more information about quitting. Alcohol Use Standard Drinks/Week Comments Not Currently 0 (1 standard drink = 0.6 oz pur e alcohol) PHQ-2 Answer Date Recorded PHQ-2 Score - If the patient scores above 3, please move on to questions 3-9 0 08/20/2021 Sex and Gender Information Value Date Recorded Sex Assigned at Male 11/12/2024 7:19 AM MEDICINE AIDE Legal Sex Male 4:09 PM MEDICINE AIDE Gender Identity Not on file Sexual Orientation Not on file COVID-19 Exposure Response Date Recorded In the last month, have you been in contact with someone who was confirmed or suspected to have Coronavirus / COVID-19? No / Unsure 08/20/2021 10:58 AM MEDICINE AIDE documented as of this encounter Plan of Treatment Upcoming Encounters Date Type Department Care Team (Late st Contact Info) Description 05/14/2025 8:00 AM CDT Office Visit [facility] [address] [facility] [address] [place] [address] Natividad Almanza NP [address] [place] [address] 08/19/2025 9:30 AM MEDICINE AIDE Appointment [facility] Radiation Oncology [address] [place] [address] Carmelo Kent MD [address] [place] [address] [address] [place] [address] 03/24/2026 10:30 AM CDT Office Visit [facility] [address] [address] Natividad Almanza NP [address] [place] [address] documented as of this encounter Visit Diagnoses Not on filedocumented in this encounter Additional Health Concerns Assessment Noted Time PHQ-9 Depression Total Score: 0 08/20/20 21 11:36 AM MEDICINE AIDE documented as of this encounter Care Teams Coal Shooter Relationship Specialty Start Date End Date Natividad Almanza NP [address] [address] PCP - General NURSE PRACTITIONER 03/09/21 Lázaro Saxena DO [address] [place] [phone] Consulting Physician MEDICAL ONCOLOGY 09/13/21 10/14/22 Carmelo Kent MD [address] [place] [address] Consulting Physician RADIATION ONCOLOGY 02/06/24 Lázaro Saxena DO [address] [place] [address] Consulting Physician ONCOLOGY 02/13/24 [facility] [address] [place] [address] 02/02/25 documented as of this encounter
--- OUTSIDE RECORDS SUMMARY | 2025-03-27 14:46 | XMS_ITS | Encounter Summary ---
Author Organization [facility] Address [address] [place] [address] Phone Care Team Providers Care Alpaca Farmer Name Role Phone Natividad Almanza APRN, WARP DRESSER Primary Care Provid er Ludy Arnold RN Unavailable Unavailable Lázaro Saxena DO Unavailable [phone] Reason for Visit * Reason Comments Medication Refill Encounter Details Date Type Department Care Team (Late st Contact Info) Description 09/07/2022 Refill [facility] [address] [place] [address] Lázaro Saxena, DO [address] [place] [address] Medication Refill Social History Tobacco [...] AM CDT Legal Sex Male 3:[address] MAGISTRATE Gender Identity Male 04/25/2023 8:39 AM CDT Sexual Orientation Not on file COVID-19 Exposure Response Date Recorded In the last 10 days, have yo u been in contact with someone who was confirmed or suspected to have Coronavirus/COVID-19? No / Unsure 08/16/2022 9:[address] MAGISTRATE documented as of this encounter Miscellaneous Notes * Telephone Encounter - Carleen Ortega RN - 09/07/2022 2:14 PM CST Refill request from pharmacy. Please fill if appropriate T COURT MAGISTRATE documented in this encounter Plan of Treatment Not on file documented as of this encounter Visit Diagnoses Not on filedocumented in this encounter Care Teams Alpaca Farmer Relationship Specialty Start Date End Date Natividad Almanza, ELECTRONIC SYSTEM ENGINEER, WARP DRESSER [address] [place] [address] PCP - General Advanced Practice Nurse 09/13/21 Ludy Arnold, MADELINE [place] Oncology Nurse Navigator Oncology 10/04/21 Lázaro Saxena DO [address] [place] [phone] Consulting Physician Oncology 02/28/23 documented as of this encounter
--- OUTSIDE RECORDS SUMMARY | 2025-03-27 14:46 | XMS_ITS | Encounter Summary ---
Author Organization [facility] Address [address] [place] [address] Phone Care Team Providers Care Protection Analyst Name Role Phone Natividad Almanza APRN, AUTO BODY REPAIRER Primary Care Provid er Ludy Arnold RN Unavailable Unavailable Lázaro Saxena DO Unavailable [phone] Reason for Visit * Reason Comments Medication Refill Encounter Details Date Type Department Care Team (Late st Contact Info) Description 11/19/2021 Refill [facility] [address] [place] [address] Lázaro Saxena, DO [address] [place] [address] Medication Refill Social History Tobacco Use Types Packs/Day Years Used Date Smoking Tobacco: Never Smokeless Tobacco: Never Alcohol Use Standard Drinks/Week Comments Never 0 (1 standard drink = 0.6 oz pur e alcohol) PHQ-2 Answer Date Recorded Total Score - Questions 1-9 0 10/13 Sex and Gender Information Value Date Recorded Sex Assigned at Male 04/25/2023 8:39 AM CDT Legal Sex Male 3:54 PM RETAIL MANAGEMENT [employer] Gender Identity Male 04/25/2023 8:39 AM CDT Sexual Orientation Not on file COVID-19 Exposure Response Date Recorded In the last month, have you been in contact with someone who was confirmed or suspected to have Coronavirus / COVID-19? No / Unsure 11/16/2021 10:01 AM RETAIL MANAGEMENT TRAINEE documented as of this encounter Plan of Treatment Not on file documented as of this encounter Visit Diagnoses Not on filedocumented in this encounter Care Teams Protection Analyst Relationship Specialty Start Date End Date Natividad Almanza APRN, AUTO BODY REPAIRER [id number] [place] [id number] PCP - General Advanced Practice Nurse 09/13/21 Ludy Arnold RN [place] Oncology Nurse Navigator Oncology 10/04/21 Lázaro Saxena DO [address] [place] [phone] Consulting Physician Oncology 02/28/23 documented as of this encounter
--- OUTSIDE RECORDS SUMMARY | 2025-03-27 14:46 | XMS_ITS ---
Author Organization [facility] Address [facility] [place] [address] Care Team Providers Care Life Management Teacher Name Role Phone Natividad Almanza NP Primary Care Provider [phone] Carmelo Kent MD Unavailable áLzaro Saxena DO Unavailable [phone] Active Problems Problem Noted Date Diagnosed Date Dysuria 05/31/2022 Hx of transient ischemic attack (TIA) 08/02/2021 Prediabetes 08/02/2021 Positive colorectal cancer screening using Colog uard test 05/26/2021 Overview (05/26/2021): Added automatically from request for surgery [id number] Type 2 diabetes mellitus wit hout complication, without long-term current use of insulin ([facility]) 02/02/2021 Overview (11/11/2024): AIC in June was 6.0 Taking glipizide 10mg daily. His blood sugars have been good. Running in the 120's. Is up 3 pounds from June.. Pt is no longer on prednisone that was ordered by oncology . He is motivated to work on eating better again. Denies any polyuria, polydipsia, or polyphagia. Denies neuropathy. Diabetic eye exam is up to date. He is working on making healthier diet changes. Assessment & Plan (11/11/2024 8:17 AM EQUIPMENT COORDINATOR): A1C today is 6.0. No changes needed at this time. Continue to work on healthy lifestyle modifications. Goal for blood sugars to be between 80-130 fasting and 180 or less two hours after eating. Be sure you have a diabetic eye exam yearly. Encourage daily foot checks, avoid walking around barefoot. Goal for A1C to stay below 7 Urine Microalbumin- 04/08/24 JAKUB/ARB-yes Statin- no statin intolerant. On Zetia Foot exam-11/11/24 Diabetic eye exam is up to date Continue to work on weight loss Encourage following a low fat, low carb diet, encorperate whole foods such as fresh fruits and vegetables and whole grains into your diet, encourage 5 small meals per day. Avoid sugar-sweetened beverages, added sugars, processed meats, refined grains and oils or other processed foods. Encourage to get at least 150 minutes of moderate aerobic activity or 75 minutes of vigorous aerobic activity a week, or a combination of moderate and vigorous activity Assessment & Plan (07/09/2024 8:32 AM CDT): A1C today is 6.0. No changes needed at this time. Continue to work on healthy lifestyle modifications. Goal for blood sugars to be between 80-130 fasting and 180 or less two hours after eating. Be sure you have a diabetic eye exam yearly. Encourage daily foot checks, avoid walking around barefoot. Goal for A1C to stay below 7 Urine Microalbumin- 04/08/24 JAKUB/ARB-yes Statin- did not tolerate, not taking Zetia unsure why he states, will recheck lipid at next visit when pt is fasting Foot exam 09/27/22 -No diabetic neuropathy in feet. Diabetic eye exam is up to date- need record Continue to work on weight loss Encourage following a low fat, low carb diet, encorperate whole foods such as fresh fruits and vegetables and whole grains into your diet, encourage 5 small meals per day. Avoid sugar-sweetened beverages, added sugars, processed meats, refined grains and oils or other processed foods. Encourage to get at least 150 minutes of moderate aerobic activity or 75 minutes of vigorous aerobic activity a week, or a combination of moderate and vigorous activity Assessment & Plan (04/08/2024 8:53 AM CDT): A1C today is 6.6,. Ok to hold metformin at this time if difficult to take since he is taking Glipizde. Pt to continue to monitor his blood sugars fasting at this time. Continue to work on healthy lifestyle modifications. Goal for blood sugars to be between 80-130 fasting and 180 or less two hours after eating. Be sure you have a diabetic eye exam yearly. Encourage daily foot checks, avoid walking around barefoot. Goal for A1C to stay below 7 Urine Microalbumin- normal- done today JAKUB/ARB-yes Statin- did not tolerate, not taking Zetia unsure why he states, will recheck lipid at next visit when pt is fasting No diabetic neuropathy in feet. Encourage to schedule diabetic eye exam. Encourage following a low fat, low carb diet, encorperate whole foods such as fresh fruits and vegetables and whole grains into your diet, encourage 5 small meals per day. Avoid sugar-sweetened beverages, added sugars, processed meats, refined grains and oils or other processed foods. Encourage to get at least 150 minutes of moderate aerobic activity or 75 minutes of vigorous aerobic activity a week, or a combination of moderate and vigorous activity Hypertension, unspecified type 11/03/2020 Hypercholesterolemia 05/31/2020 Hyperglycemia 05/31/2020 H/O colonoscopy Overview (08/04/2021): positive cologuard, negative colonoscopy, repeat in 5 years Prostate cancer ([facility]) Current Treatment and Therapy Plans No current plan information found. Past Treatment and Therapy Plans No past plan information found. Radiation Treatments * Course C1 10/20/2021 - 11/26/2021 Treatment Period Energy Fraction Dose Fractions Total Dose Plans Planned Prostate+LN 10/20/2021 - 11/26/2021 28 of 28 / Reference Points Delivered Prstate+Nodes 10/20/2021 - 11/26/2021 [id number] 01 Treatment Summaries Prostate cancer ([facility])* Images from the original note were not included. Survivorship Care Plan Patient Name Denny Mccray Date of 1950 Plan Completed By Lynne CORREA on 05/20/22 Care Team Medical Oncologist Dr. Saxena [phone] Radiation Oncologist No care cleaning team member to display [phone] Primary Care Physician NATIVIDAD ALMANZA NP [phone] Nurse Navigator Lynne CORREA [phone] Diagnosis Prostate cancer (CMS/HCC) Age at diagnosis 72-year-old Pertinent past medical history Past Medical History: Diagnosis Date Arthritis Diabetes mellitus (CMS/HCC) changed diet and HgbA1C dropped to 6.1 and is now pre-diabetes History of combined right and left heart catheterization Hypertension PONV (postoperative nausea and vomiting) Prostate cancer (CMS/HCC) PSA elevation Pyloric stenosis at 8 weeks old TIA (transient ischemic attack) 2020 no residual effect Diagnostic Procedures PSA on 05/18/21 PET PSMA on 09/01/21 Surgery Needle Biopsy of Prostate on 08/12/21 Family History Family History Problem Relation Name Age of Onset Hypertension Mother Diabetes Mother Heart Disease Mother Kidney Disease Mother Breast Cancer Mother Cancer Mother breast cancer, basal cell skin cancer Heart Disease Father Prostate Cancer Father Cancer Father prostate Lung Cancer Brother Heart Disease Maternal Grandmother CHF Maternal Grandmother Stroke Maternal Grandfather Chemotherapy and Other Treatments Lupron started on 10/05/21 Abiraterone started 11/02 Treatment on clinical trial? No Pre-operative chemotherapy administered? No Radiation Treatment Site: Prostate Total Dose: 70 Gy Treatment Dates: 10/20/21-11/26/21 Ongoing Toxicities and Side Effects Potential long-term effects associated with radiation treatment Radiation bladder inflammation <5% Radiation Rectal inflammation <5% Urethral stenosis ( narrowing of passage way) requiring dilatation <1% Fistula formation <1% Small bowel obstruction Secondary malignancy Persistent erectile dysfunction After completing external beam radiation treatment for prostate carcinoma, the acute effects of treatment such as increased urinary and stool frequency as well as fatigue should resolve within 2-4 weeks after completion. prison side effects may include a mild increase in stool and urinary frequency and potentially urgency. These symptoms are often intermittent and occur in 25-30% of men who receive radiation treatment for prostate carcinoma. In frequent custodial side effects can include blood in the stool or urine. If you develop these symptoms you should notify your urologist or primary care provider. The risk of severe side effects such as urinary incontinence is remote, Some studies indicate a very slight increase in the risk of secondary cancers such as colon, rectal or bladder carcinoma in patients who receive radiation for prostate carcinoma. No additional screening tests are indicated as the actual risk is very low. Common Issues and Needs Men Have After Prostate Cancer Treatments You may need support for treatments that you have already had including surgery, hormone treatmentsand chemotherapy. After prostate cancer treatments common issues that may arise include: physical symptoms including incontinence, urinary retention or voiding difficulties and bladder outlet obstruction, pain and fatigue erectile dysfunction, ejaculation dysfunction and impotence as a result of treatment rectal complications emotional distress arising from fear of disease recurrence, changes in body image, returning to work, anxiety/depression, interpersonal problems and sexuality concerns a need for increased community supports as patients recover from treatment financial and employment issues (such as loss of income and assistance with returning to work and the cost of treatment, travel and accommodation) legal issues (including advance care planning, appointing a power of sling operator and completing a will) Please discuss on going needs and concerns with your primary care physician and with follow up visits with your urologist. Most men experience some form of adjustments during recovery from prostate cancer treatment. Some issues that may continue to need to be addressed in follow up visits include: urinary and bowel function sexual function managing cancer-related fatigue Recommended health practices: A number of lifestyle/behaviors can affect your ongoing health, including the risk for the cancer coming back or developing another cancer. Recommended health practices: Maintenance of body weight as weight gain is associated with recurrence Regular physical activity (e.g., walking 20 minutes daily) Avoidance of smoking/smoking cessation counseling, if appropriate Limitation of alcohol intake to less than 1 drink, 2-3x per week NCCN Guidelines for Follow UP Visit your urologist for routine follow care with PSA every 6-12 months for 5 years and then every year. Digital rectal exam every year but may be omitted if PSA undetectable. Every 3 month PSA may be necessary to clarify disease status. Preventive Measures per Primary Care Physician Bone rafi- Bone density testing as appropriate Cholesterol monitoring and management Diet Exercise Hypertenson control Mental Health monitoring Smoking cessation Vaccines- Annual Influenza vaccination -Pneumococcal vaccination with revaccination Weight management Maintenance of body weight as weight gain is associated with recurrence Body Mass Index or BMI is one way to determine if a person???s weight places them at risk for disease such as diabetes, heart disease and cancer. Below 18.5-underweight 18.5-24.9-normal or healthy weight 25-29.9-overweight 30-39.9-obese 40 and above-morbidly obese Your Body mass index is 30.96 kg/m??. Routine cancer screening as indicated If over 50 years: Colonoscopy every 10 years if first one is normal, every year if abnormal. Additional Web Resources National USTOO for Prostate cancer https://www.ustoo.org https://www.cancer.org/cancer/prostate-cancer/about/grnl-jt-rlwkxtza-cancer.html Go to Our Services on this site, then Support You can join a Phone Support group Join an Online Support Group Get one to one support Helpline Financial assistance help National Comprehensive Cancer Network https://www.cancer.org/cancer/prostate-cancer/about/cwbb-rn-oqjtnyvo-cancer.html Prostate cancer National Comprehensive Cancer Network https://www.nccn.org/patients/guidelines/prostate/index.html National Cancer [place] www.cancer.gov [place] Society of Clinical Oncology (ASCO) www.cancer.net National Coalition for Cancer Survivorship (NCCS) www.canceradvocacy.org Needy Meds www.SendtoNews.[employer] Urology http://urologyhealth.org/educational-materials Visit Cancer.Net's survivorship section provides helpful information for cancer survivors and theirfriends and family. Download the ASCO Answers Guide to Cancer Survivorship for free as a printable pdf National Coalition for Cancer Survivorship (NCCS) www.canceradvocacy.org Survivorship: What Happens After Active Treatment Ends (View Video) https://youtu.be/YUKw5Sh7N0e Guidelines for Prostate cancer Treatment Patient Booklet https://www.nccn.org/patients/guidelines/prostate/index.html Urology http://urologyhealth.org/educational-materials www.Synthelis.org [employer] Information and resources, and suport,plus access to helpful forums and chat rooms. www.e-Booking.com Aging and Disability Resource Center https://www.dhs.[place].gov/adrc/consumer/index.htm (ADRC) [place] Cancer Society www.cancer.org Cancer Care[employer] Inc www.cancercare.org Cancer Support Community www.cancersupportcommunity.org [employer] http://www.livestrong.org/what-we-do/our-actions/livestrong-programs/ymca/ Resolved Problems Problem Noted Date Diagnosed Date Resolved Date Screening for colon cancer 05/26/2021 1 10/02/2020 Overview (05/26/2021): Added automatically from request for surgery [id number] Syncope 05/30/2020 08/02/2021
--- OUTSIDE RECORDS SUMMARY | 2025-03-27 14:46 | XMS_ITS | Clinical Summary ---
Author Organization [facility] Address [facility] [place] [address] Care Team Providers Care Computer Forensics Analyst Name Role Phone Natividad Almanza NP Primary Care Provider [phone] Carmelo Kent MD Unavailable Lázaro Saxena DO Unavailable [phone] Allergies Active Allergy Reactions Criticality Noted Date Comments Rosuvastatin Other (see comment) Medium 08/02/2021 Leg cramps Medications aspirin EC 81 MG tablet Take 1 tablet (81 mg total) by mouth daily. Active Blood Glucose Monitoring Suppl (ONE TOUCH ULTRA 2) w/Device KitIndications:Typ e 2 diabetes mellitus without complication, without long-term current use of insulin ([facility]) Check blood sugars each morning and evening, also check blood sugars before each meal.1 1 kit 02/25/20 22 Active Lancets (ONETOUCH ULTRASOFT) lancetsIndications :Type 2 diabetes mellitus without complication, without long-term current use of insulin ([facility]) Use 3-4 times a day to check blood sugars 100 each 3 02/25/20 22 Active Cinnamon Bark Powder Take 250 mg by mouth 2 (two) times daily. Active ezetimibe (ZETIA) 10 MG tabletIndications: Mixed hyperlipidemia Take 1 tablet (10 mg total) by mouth daily. 90 tablet 1 07/25/20 24 Active Additional Information Patient not taking.Reason: Side effects (Nausea), Reported on 03/11/2025 latanoprost (XALATAN) 0.005 % ophthalmic solution INSTILL ONE DROP IN EACH EYE EVERY NIGHT AT BEDTIME 02/05/20 25 Active Apple Lacho Vn-Grn Tea-Bit Or-Cr (APPLE CIDER VINEGAR PLUS) Tab Take 1 tablet by mouth 2 (two) times daily. Active glipiZIDE XL 5 MG 24 hr tabletIndications: Type 2 diabetes mellitus without complication, without long-term current use of insulin ([facility]) Take 1 tablet (5 mg total) by mouth daily with breakfast. Do not break or crush tablet 90 tablet 1 11/27/19 25 Active lisinopril (PRINIVIL) 5 MG tabletIndications: Hypertension, unspecified type TAKE 1 TABLET(5 MG) BY MOUTH IN THE MORNING 90 tablet 1 12/24/19 25 Active tamsulosin (FLOMAX) 0.4 MG Cap Take 2 capsules (0.8 mg total) by mouth daily. 60 capsule 2 02/05/20 Active Additional Information Patient taking differently: 0.4 mgOral Daily,1-2 Tablets depending on urinary frequency at [facility], Reported on 03/11/2025 Glucose Blood (LetUCH ULTRA TEST) test stripIndications:T ype 2 diabetes mellitus without complication, without long-term current use of insulin ([facility]) 1 strip by Other route as needed. Use as instructed 200 strip 1 02/12/20 Active NON FORMULARY Take 1 capsule by mouth daily. Glyco Renew Active NON FORMULARY Take 2 drops by mouth daily. Soursop Active Active Problems Problem Noted Date Diagnosed Date Dysuria 05/31/2022 Hx of transient ischemic attack (TIA) 08/02/2021 Prediabetes 08/02/2021 Positive colorectal cancer screening using Colog uard test 05/26/2021 Overview (05/26/2021): Added automatically from request for surgery [id number] Type 2 diabetes mellitus wit hout complication, without long-term current use of insulin ([facility]) 02/02/2021 Overview (11/11/2024): AIC in June was [...] changes. Assessment & Plan (11/11/2024 8:17 AM EXTRUSION DIE CORRECTOR): A1C today is 6.0. No changes needed [...] colonoscopy, repeat in 5 years Prostate cancer ([facility]) Resolved Problems Problem Noted Date Diagnosed Date Resolved Date Screening for colon cancer 05/26/2021 1 10/02/2020 Overview (05/26/2021): Added automatically from request for surgery [id number] Syncope 05/30/2020 08/02/2021 Encounters Date Type Department Care Team Description 03/11/2025 10:30 AM CDT Office Visit [facility] Family Medicine - [place] [address] [place] [address] Natividad Almanza NP Medicare Wellness (Patient presents today for their Medicare Annual Wellness Visit.) 03/11/2025 Telephone [facility] Family Medicine - [place] [address] [place] [address] Natividad Almanza, ERNESTINA Health Maintenance Follow Up (Request for diabetic eye exam) 03/11/2025 Travel 02/11/2025 Orders Only [facility] Family Medicine - [place] [address] [place] [address] Sherine Villavicencio LPN 02/04/2025 Orders Only [facility] Radiation Oncology [address] [place] [address] Carmelo Kent MD 01/13/2025 Scan MG HEALTH INFO SRVCS Scanned, Doc Med Group from Last 3 Months Immunizations Immunization Administration Dates Next Due Fluzone High Dose (IIV, trivalent, 0.5mL) 2023 Fluzone High Dose - >Age 65 (Prefilled Syringe) 06/17/2023 Influenza Adult (Generic) 06/16/2022,06/19/2021 MODERNA COVID-19 BIVALENT (12+), MRNA, LNP-S, PF 05/29/2022 MODERNA COVID-19 (12+) MRNA, LNP-S, PF, 100 MCG/ 0.5 ML DOSE 04/16/2021,03/19/2021 MODERNA COVID-19 (12+), MRNA , LNP-S, PF, 50 MCG/0.5 ML (SPIKEVAX) 06/02/2024 MODERNA COVID-19 (GAME [employer] BUSTER JOSEPH), MRNA, LNP-S, PF, 50 MCG/ 0.25 ML DOSE 10/18/2021 Pneumococcal (Prevnar 20) 06/27/2022 Shingrix 07/27/2021,05/24/2021 Tdap (Adacel) 05/06/2021 Family History Medical History Relation Comments Lung Cancer Brother Cancer Father prostate Heart Disease Father Prostate Cancer Father Stroke Maternal Grandfather CHF Maternal Grandmother Heart Disease Maternal Grandmother Breast Cancer Mother Cancer Mother breast cancer, b brook cell skin cancer Diabetes Mother Heart Disease Mother Hypertension Mother Kidney Disease Mother Relation Status Comments Brother Daughter Alive Father Maternal Grandfather Maternal Grandmother Mother Son Alive Social History Tobacco Use Types Packs/Day Years Used Date Smoking Tobacco: Never Passive Smoke Exposure: Past Smokeless Tobacco: Never Tobacco Cessation:Counseling Given: Not Answered Alcohol Use Standard Drinks/Week Comments Not Currently 0 (1 standard drink = 0.6 oz pur e alcohol) AUDIT-C Answer Date Recorded Q1: How often do you have a drink containing alcohol? Never 03/11/2025 Q2: How many drinks containi ng alcohol do you have on a typical day when you are drinking? Patient does not drink Q3: How often do you have si x or more drinks on one occasion? Never 03/11/2025 PHQ-2 Answer Date Recorded Patient Health Questionnaire-2 Score 0 03/11/2025 Sex and Gender Information Value Date Recorded Sex Assigned at Male 11/12/2024 7:19 AM EXTRUSION DIE CORRECTOR Legal Sex Male 4:09 PM EXTRUSION DIE CORRECTOR Gender Identity Not on file Sexual Orientation Not on file Last Filed Vital Signs Vital Sign Reading Time Taken Comments Blood Pressure 128/69 03/11/2025 10:29 AM CDT Pulse 68 03/11/2025 10:29 AM CDT Temperature 36.7 C (98.1 F) 03/11/2025 10:29 AM CDT Respiratory Rate 16 03/11/2025 10:2 9 AM CDT Oxygen Saturation 96% 03/11/2025 10: 29 AM CDT Inhaled Oxygen Concentration - - Weight 101.8 kg (224 lb 6.4 oz) 025 10:29 AM CDT Height 180.3 cm (5' 11) 03/11/2025 10: 29 AM CDT Body Mass Index 31.3 03/11/2025 10:29 AM CDT Plan of Treatment Upcoming Encounters Date Type Department Care Team (Late st Contact Info) Description 05/14/2025 8:00 AM CDT Office Visit [facility] Family Medicine - [place] [address] [place] [address] Natividad Almanza NP [address] [place] [address] 08/19/2025 9:30 AM EXTRUSION DIE CORRECTOR Appointment [facility] Radiation Oncology [address] [place] [address] Carmelo Kent MD [address] [place] [address] 03/24/2026 10:30 AM CDT Office Visit [facility] Family Medicine - [place] [address] [place] [address] Natividad Almanza, ERNESTINA [address] [place] [address] Health Maintenance Due Date Last Done Comments Kidney Health Evaluation 04/08/2025 04/08/2024 COVID-19 Vaccine ( season) 2025 06/02/2024, 06/17/2023, 05/29/2022, Additional history exists Postponed from 11/30/2024 (Future Appointment) Hemoglobin A1C 05/14/2025 11/11/2024, 06/12, 04/08/2024, Additional history exists Diabetes: Retinopathy Eye Exam 06/12/2025 06/12/2024 Lipid Panel 07/16/2025 07/16/2024, 12/0 02/2022, 05/18/2021, Additional history exists RSV Immunization or 60+ Years (1 - Risk 60-74 years 1-dose series) 03/11/2026 Postponed fro m 2011 (Going to Outside Clinic) Annual Medicare Wellness Visit 03/12/2026 03/11/2025 DTaP, Tdap and Td Vaccines (2 - Td or Tdap) 05/06/2031 05/06/2021 Colorectal Cancer Screening Colonoscopy (10 Years) 06/14/2031 06/14/2021 Colorectal Cancer Screening FIT-DNA (3 Years) Discontinued 03/29/2021 Zoster Vaccines Completed 07/27/2021, 05/24/2021 Pneumococcal Vaccine: 50+ Years Completed 06/27/2022 Hepatitis C Completed 02/13/2024 PHQ-2 (Physician [place]) Completed 03/11/2025 Meningococcal B Vaccine Aged Out No l onger eligible based on patient's age to complete this topic Meningococcal Vaccine Aged Out No mary lyly eligible based on patient's age to complete this topic RSV Immunizations Under 20 Months Aged Out No longer eligible based on patient's age to complete this topic Medical Devices Implanted Type Area Director Of Income Tax Device Identifier Shelf Expiration Date Model / Serial / Lot Ankle Procedures Procedure Name Priority Date/Time Associated Diagnosis Comments HEMOGLOBIN, GLYCOSYLATED Routine 11/11/2024 Type 2 diabetes mellitus without complication, without long-term current use of insulin ([facility]) LIPID PANEL Routine 07/16/2024 7:49 AM EXTRUSION DIE CORRECTOR Mixed hyperlipidemia DIABETIC RETINOPATHY EXAM (POSITIVE)(SCAN ORDER) Routine 06/12/2024 HEPATITIS C ANTIBODY Routine 02/13/2024 10:25 AM CDT Need for hepatitis C screening test COLOGUARD (EXACT SCIENCE) Routine 03/29/2021 6:20 AM CDT Colon cancer screening from Last 3 Months or Most Recently Relevant to Health Maintenance Results * A1C (BACK OFFICE) (11/11/2024) HGB A1C 6.0 % [address], [place] 11/11/2024 us Natividad Almanza [facility] Final Res ult [address] [address] [place] [address], * (ABNORMAL) LIPID PANEL (07/16/2024 7:49 AM EXTRUSION DIE CORRECTOR) CHOLESTEROL 202(H) <200 MG/DL 07/16/2024 3:08 PM EXTRUSION DIE CORRECTOR [facility] TARI HURST TRIGLYCERIDES 188(H) <150 MG/DL 07/16/2024 3:08 PM EXTRUSION DIE CORRECTOR [facility] NATALI MENOMINEE HDL 42 >40 MG/DL 07/16/2024 3:08 PM EXTRUSION DIE CORRECTOR [facility] LDL-C 122(H) <100 MG/DL 07/16/2024 3:08 PM [facility] VLDL CALCULATION 38(H) 5 - 28 MG/DL 07/16/2024 3:08 PM [facility] CHOL/HDL RATIO 4.8(H) 0.0 - 4.0 07/16/2024 3:08 PM [facility] LDL/HDL 2.9(H) 0.41 - 2.13 07/16/2024 3:08 PM [facility] NON HDL CHOLESTEROL 160(H) <140 MG/DL 07/16/2024 3:08 PM [facility] 07/16/2024 7:49 AM EXTRUSION DIE CORRECTOR Natividad Almanza [facility] Final Res ult Performing Organization Address City/[facility] Co de Phone Number [facility] [address] [place] [address], [place] [phone] * DIABETIC RETINOPATHY EXAM (POSITIVE) (06/12/2024) us Doc [facility] Scanned SCANNING Final Resu lt Performing Organization Address [facility] de Phone Number [facility] * HEPATITIS C ANTIBODY ([facility] ONLY) (02/13/2024 10:25 AM CDT) HEPATITIS C AB NON-REACTI VE NON-REACT ABDI 02/13/2024 8:43 PM CDT [facility] Comment: ANTIBODIES TO HCV NOT DETECTED. DOES NOT EXCLUDE THE POSSIBILITY OF EXPOSURE TO HCV. 02/13/2024 10:2 5 AM CDT Natividad Almanza [facility] Final Res ult Performing Organization Address City/[facility] Co de Phone Number [facility] [address] [place] [phone], [phone] * (ABNORMAL) COLOGUARD (SendtoNews) (03/29/2021 6:20 AM CDT) COLOGUARD RESULT Positive( A) Negative [facility] (CLIA #:[id number]) Comment: POSITIVE TEST RESULT. A positive Cologuard result should be followed with a colonoscopy or visual examination of the colon. The normal value (reference range) for this assay is negative. TEST DESCRIPTION: Composite algorithmic analysis of stool DNA-biomarkers with hemoglobin immunoassay. Quantitative values of individual biomarkers are not reportable and are not associated with individual biomarker result reference ranges. Cologuard is intended for colorectal cancer screening of adults of either sex, 45 years or older, who are at average-risk for colorectal cancer (CRC). Cologuard has been approved for use by the U.S. FDA. The performance of Cologuard was established in a cross sectional study of average-risk adults aged 50-84. Cologuard performance in patients ages 45 to 49 years was estimated by sub-group analysis of near-age groups. Colonoscopies performed for a positive result may find as the most clinically significant lesion: colorectal cancer [4.0%], advanced adenoma (including sessile serrated polyps greater than or equal to 1cm diameter) [20%] or non- advanced adenoma [31%]; or no colorectal neoplasia [45%]. These estimates are derived from a prospective cross-sectional screening study of 10,000 individuals at average risk for colorectal cancer who were screened with both Cologuard and colonoscopy. (Tracy Mendes al, N Engl J Med 2014;370(14):6413-5832.) Cologuard may produce a false negative or false positive result (no colorectal cancer or precancerous polyp present at colonoscopy follow up). A negative Cologuard test result does not guarantee the absence of CRC or advanced adenoma (pre-cancer). The current Cologuard screening interval is every 3 years. ([place] Cancer Society and U.S. Multi-Society Task Force). Cologuard performance data in a 10,000 patient pivotal study using colonoscopy as the reference method can be accessed at the following location: www.[employer]/results. Additional description of the Cologuard test process, warnings and precautions can be found at www.cologTecMedrd.com. Stool specimen (specimen) STOOL SPECIMEN / Unknown 03/29/2021 6:20 AM CDT 03/30/2021 6:45 PM CDT Natividad Almanza NP BODY FLUIDS AND STOOLS OR DERABLES Final Result [facility]) [address] [place] [address], [facility] (CLIA #:[id number]) [address] [address] from Last 3 Months or Most Recently Relevant to Health Maintenance Insurance MEDICARE [facility] Advance Directives * Full Code (Latest Code Status on File) Date Activated Date Inactivated Comments 08/12/2021 2:40 PM 08/12/2021 6:46 PM Care Teams Computer Forensics Analyst Relationship Specialty Start Date End Date Natividad Almanza NP [address] [place] [address] PCP - General NURSE PRACTITIONER 03/09/21 Carmelo Kent MD [address] [place] [address] Consulting Physician RADIATION ONCOLOGY 02/06/24 Lázaro Saxena DO [address] [place] [address] Consulting Physician ONCOLOGY 02/13/24 [facility] [address] [place] [address] 02/02/25
[2025-03-27 14:51] LABS: Hematocrit 36.8 % (42.0-52.0); Hemoglobin 12.7 g/dL (14.0-18.0); Immature Granulocyte Percent A 1.1 % (0-0.5); Lymphocytes Absolute Auto 1.08 K/mm3 (0.9-3.2); Mean Corpuscular HGB Conc 34.5 g/dl (32-36); Mean Corpuscular Hemoglobin 30.2 pg (26-34); Mean Corpuscular Volume 87.4 fl (80-100); Nucleated Red Blood Cells Absolute Auto 0.000 K/mm3 (0.0-0.012); Nucleated Red Blood Cells Perc 0.0 % (0.0-0.2); Platelet Count Result 231 k/mm3 (150-375); Red Blood Count 4.21 M/mm3 (4.6-6.20); White Blood Count 6.4 K/mm3 (4.5-10.0)
[2025-03-27 15:05] LABS: Alanine Aminotransferase 38 U/L (6-50); Albumin Level 3.9 g/dL (3.5-5.1); Alkaline Phosphatase 86 U/L (38-126); Anion Gap 9 mmol/L (4-12); Aspartate Amino Transferase 30 U/L (17-59); Bilirubin,Total 0.3 mg/dL (0.2-1.3); Blood Urea Nitrogen 21 mg/dL (9-20); Calcium 9.2 mg/dL (8.4-10.2); Carbon Dioxide 22 mmol/L (22-30); Chloride 109 mmol/L (98-107); Estimated Glomerular Filt Rate > 60; Glucose 187 mg/dL (65-110); INR 1.0; Lipase 51 U/L (23-300); Partial Thromboplastin Time 28.3 Seconds (22.3-36.8); Potassium 3.8 mmol/L (3.4-5.0); Prothrombin Time 13.4 Seconds (11.1-14.7); Sodium 140 mmol/L (137-145); Total Protein 7.2 g/dL (6.3-8.2)
[2025-03-27 15:16] LABS: Troponin I < 0.012 ng/mL (0.000-0.034)
[2025-03-27] MEDS: ASPIRIN 81 MG CHEWABLE TABLET 324 MG PO (16:39)
--- OUTSIDE RECORDS SUMMARY | 2025-03-27 17:01 | XMS_ITS | Encounter Summary ---
Author Organization [facility] Address [address] [place] [address] Phone Care Team Providers Care Supervisor Shop Name Role Phone Natividad Almanza APRN, MEDICATION ASSISTANT Primary Care Provid er Ludy Arnold RN Unavailable Unavailable Lázaro Saxena DO Unavailable [phone] Reason for Visit * Reason Comments Medication Refill Encounter Details Date Type Department Care Team (Late st Contact Info) Description 06/01/2023 Refill [facility] [address] [place] [address] Lázaro Saxena, DO [address] [place] [address] Medication Refill Social History Tobacco [...] AM CDT Legal Sex Male 3:54 PM SOLE CUTTER Gender Identity Male 04/25/2023 8:39 AM CDT [...] on filedocumented in this encounter Care Teams Supervisor Shop Relationship Specialty Start Date End Date Natividad Almanza APRN, MEDICATION ASSISTANT [address] [place] [address] PCP - General Advanced Practice Nurse 09/13/21 Ludy Arnold RN [place] Oncology Nurse Navigator Oncology 10/04/21 Lázaro Saxena DO [address] [place] [phone] Consulting Physician Oncology 02/28/23 documented as of this encounter
--- OUTSIDE RECORDS SUMMARY | 2025-03-27 17:01 | XMS_ITS | Encounter Summary ---
Author Organization [facility] Address [address] [place] [address] Phone Care Team Providers Care Primary Montessori Teacher Name Role Phone Natividad Amlanza APRN, HOME SUPPORT WORKER Primary Care Provid er Ludy Arnold RN Unavailable Unavailable Lázaro Saxena DO Unavailable [phone] Reason for Visit * Reason Comments Medication Refill Encounter Details Date Type Department Care Team (Late st Contact Info) Description 09/07/2022 Refill [facility] [address] [place] [address] Lázaro Saxena, DO [address] [place] [address] Medication Refill Social History Tobacco [...] AM CDT Legal Sex Male 3:54 PM COACH OPERATOR Gender Identity Male 04/25/2023 8:39 AM CDT Sexual Orientation Not on file COVID-19 Exposure Response Date Recorded In the last 10 days, have yo u been in contact with someone who was confirmed or suspected to have Coronavirus/COVID-19? No / Unsure 08/16/2022 9:42 AM COACH OPERATOR documented as of this encounter Miscellaneous Notes * Telephone Encounter - Carleen Ortega RN - 09/07/2022 2:14 PM CST Refill request from pharmacy. Please fill if appropriate H OPERATOR documented in this encounter Plan of Treatment Not on file documented as of this encounter Visit Diagnoses Not on filedocumented in this encounter Care Teams Primary Montessori Teacher Relationship Specialty Start Date End Date Natividad Almanza, MECHANIC AND WELDER, HOME SUPPORT WORKER [address] [place] [address] PCP - General Advanced Practice Nurse 09/13/21 Ludy Arnold, MADELINE MD Oncology Nurse Navigator Oncology 10/04/21 Lázaro Saxena DO [address] [place] [address] Consulting Physician Oncology 02/28/23 documented as of this encounter
--- OUTSIDE RECORDS SUMMARY | 2025-03-27 17:01 | XMS_ITS | Clinical Summary ---
Author Organization [facility] Address [address] [place] [address] Phone Care Team Providers Care Human Service Coordinator Name Role Phone Corby Brown MD Primary Care Provider [phone] Allergies No known active allergies Medications No [...] 2026 Insurance [facility] [place] [id number] Advance Directives For more information, please contact: [phone] * Full Code (Latest Code Status on File) Date Activated Date Inactivated Comments 05/31/2020 4:56 AM 06/01/2020 5:20 PM Care Teams Human Service Coordinator Relationship Specialty Start Date End Date Corby Brown MD [address] [place] [id number] PCP - General Family Practice 05/31/20
--- OUTSIDE RECORDS SUMMARY | 2025-03-27 17:01 | XMS_ITS | Encounter Summary ---
Author Organization [facility] Address [address] [place] [address] Phone Care Team Providers Care Plc Engineer Name Role Phone Natividad Almanza APRN, GLOBAL SALES MANAGER Primary Care Provid er Ludy Arnold RN Unavailable Unavailable Lázaro Saxena DO Unavailable [phone] Reason for Visit * Reason Comments Medication Refill Encounter Details Date Type Department Care Team (Late st Contact Info) Description 03/01/2023 Refill [facility] [address] [place] [address] Tomasa Figueroa, PAC Medication Refill [...] AM CDT Legal Sex Male 3:54 PM OYSTER WORKER Gender Identity Male 04/25/2023 8:39 AM CDT [...] on filedocumented in this encounter Care Teams Plc Engineer Relationship Specialty Start Date End Date Natividad Almanza, CENTER MEDICAL AND LAB DIRECTOR, GLOBAL SALES MANAGER [address] [place] [address] PCP - General Advanced Practice Nurse 09/13/21 Ludy Arnold RN [place] Oncology Nurse Navigator Oncology 10/04/21 Lázaro Saxena DO [address] [place] [address] Consulting Physician Oncology 02/28/23 documented as of this encounter
--- OUTSIDE RECORDS SUMMARY | 2025-03-27 17:01 | XMS_ITS | Encounter Summary ---
Author Organization [facility] Address [address] [place] [address] Phone Care Team Providers Care Surgical First Assistant Name Role Phone Natividad Almanza APRN, CLOTH WASHER Primary Care Provid er Ludy Arnold RN Unavailable Unavailable Lázaro Saxena DO Unavailable [phone] Reason for Visit * Reason Comments Medication Refill Encounter Details Date Type Department Care Team (Late st Contact Info) Description 11/25/2023 Refill [facility] [address] [place] [address] Lázaro Saxena, DO [address] [place] [address] Medication Refill Social History Tobacco [...] AM CDT Legal Sex Male 3:54 PM CONSUMER LENDER Gender Identity Male 04/25/2023 8:39 AM CDT [...] on filedocumented in this encounter Care Teams Surgical First Assistant Relationship Specialty Start Date End Date Natividad Almanza APRN, CLOTH WASHER [address] [place] [address] PCP - General Advanced Practice Nurse 09/13/21 Ludy Arnold RN [place] Oncology Nurse Navigator Oncology 10/04/21 Lázaro Saxena DO [address] [facility] [place] [id number] Consulting Physician Oncology 02/28/23 documented as of this encounter
--- OUTSIDE RECORDS SUMMARY | 2025-03-27 17:01 | XMS_ITS | Referral Summary ---
Author Organization [facility] Address [address] [place] [phone] Care Team Providers Care Rubber Goods Tester Water Name Role Phone Corby Brown MD Primary Care Provider [phone] Allergies No known active allergies Medications lisinopriL [...] 07/21/2020 Assessment & Plan (07/21/2020 3:22 PM MANAGER SKILLED): Patient experienced a recent transient alteration of awareness lasting about 30 minutes. By the time he had presented to [facility] he has his sensorium it normalized. During his hospitalization he underwent cerebrovascular and cardiovascular evaluations in addition to EEG, CT, and MRI all of which was normal. He remained cognitively normal during his hospitalization. He was ultimately discharged home on treatment for hypertension hypercholesterolemia and an aspirin daily which he has continued since and has remained asymptomatic. From review of his [facility] records it appears that there was suspicion [...] on file Legal Sex Male 12:54 AM MANAGER SKILLED Gender Identity Not on file Sexual Orientation Not on file Last Filed Vital Signs Vital Sign Reading Time Taken Comments Blood Pressure 118/66 07/21/2020 2:25 PM MANAGER SKILLED Pulse 92 07/21/2020 2:25 PM MANAGER SKILLED Temperature 36.4 C (97.5 F) 07/21/2020 2:25 PM MANAGER SKILLED Respiratory Rate - - Oxygen Saturation - - Inhaled Oxygen Concentration - - Weight 102.8 kg (226 lb 9.6 oz) 07/21/2020 2:25 PM MANAGER SKILLED Height 180.3 cm (5' 11) 07/21/2020 2:25 PM MANAGER SKILLED Body Mass Index 31.6 07/21/2020 2:25 PM MANAGER SKILLED Plan of Treatment Not on file Insurance COMMERCIAL GENERIC MEDICARE [facility] Address: [address] [address] [place] [address] MEDICARE COMMERCIAL GENERIC Care Teams Rubber Goods Tester Water Relationship Specialty Start Date End Date Corby Brown MD [address] [place] [phone] PCP - General Family Medicine 07/21/20
--- OUTSIDE RECORDS SUMMARY | 2025-03-27 17:01 | XMS_ITS | Encounter Summary ---
Author Organization [facility] Address [facility] [place] [address] Care Team Providers Care Medical Research Scientist Name Role Phone Natividad Almanza NP Primary Care Provider [phone] Lázaro Saxena DO Unavailable [phone] Carmelo Kent MD Unavailable Láazro Saxena DO Unavailable [phone] Encounter Details Date Type Department Care Team (Late st Contact Info) Description 02/24/2022 Popbasic Message Enc [facility] Family [facility] - [place] [address] [facility] [address] [place], [place] [phone] Natividad Almanza NP [address] [place], [place] [address] Follow up on lab results Social History [...] Sex Assigned at Male 11/12/2024 7:19 AM MONITOR CAR OPERATOR Legal Sex Male 4:09 PM MONITOR CAR OPERATOR Gender Identity Not on file Sexual Orientation [...] Description 05/14/2025 8:00 AM CDT Office Visit [facility] Family [facility] [address] [address] Natividad Almanza NP [address] [place] [address] 08/19/2025 9:30 AM MONITOR CAR OPERATOR Appointment [facility] Radiation Oncology [address] [place] [address] Carmelo Kent MD [address] [place] [address] [address] [place] [address] 03/24/2026 10:30 AM CDT Office Visit [facility] [place] [address] [place] [address] Natividad Almanza NP [address] [place] [phone] documented as of this encounter Visit Diagnoses Not on filedocumented in this encounter Additional Health Concerns Assessment Noted Time PHQ-9 Depression Total Score: 0 09/07/20 21 7:57 AM MONITOR CAR OPERATOR documented as of this encounter Care Teams Medical Research Scientist Relationship Specialty Start Date End Date Natividad Almanza NP [address] [place] [phone] PCP - General NURSE PRACTITIONER 03/09/21 Lázaro Saxena DO [address] [place] [phone] Consulting Physician MEDICAL ONCOLOGY 09/13/21 10/14/22 Carmelo Kent MD 1 [place] [address] Consulting Physician RADIATION ONCOLOGY 02/06/24 Lázaro Saxena DO 1 [place] [address] Consulting Physician ONCOLOGY 02/13/24 [facility] [address] [place] [address] 02/02/25 documented as of this encounter
--- OUTSIDE RECORDS SUMMARY | 2025-03-27 17:01 | XMS_ITS | Encounter Summary ---
Author Organization [facility] Address [address] [place] [address] Phone Care Team Providers Care Paper Latcher Name Role Phone Natividad Almanza APRN, ESL PROFESSOR Primary Care Provid er Ludy Arnold RN Unavailable Unavailable Lázaro Saxena DO Unavailable [phone] Reason for Visit * Reason Comments Medication Refill Encounter Details Date Type Department Care Team (Late st Contact Info) Description 02/17/2023 Refill [facility] [address] [place] [address] Lázaro Saxena, DO [address] [place] [address] Medication Refill Social History Tobacco [...] AM CDT Legal Sex Male 3:54 PM LENS BLOCK GAUGER Gender Identity Male 04/25/2023 8:39 AM CDT [...] prostate documented in this encounter Care Teams Paper Latcher Relationship Specialty Start Date End Date Natividad Almanza, EDITOR TRADE JOURNAL, ESL PROFESSOR [address] [place] [address] PCP - General Advanced Practice Nurse 09/13/21 Ludy Arnold RN [place] Oncology Nurse Navigator Oncology 10/04/21 Lázaro Saxena DO [address] [place] [phone] Consulting Physician Oncology 02/28/23 documented as of this encounter
--- OUTSIDE RECORDS SUMMARY | 2025-03-27 17:01 | XMS_ITS | Clinical Summary ---
Author Organization [facility] Address [address], [facility] [address] [place] [address] Phone Care Team Providers Care Shelter Case Manager Name Role Phone Natividad Almanza APRN, PLASMA CUTTING MACHINE OPERATOR Primary Care Provid er Ludy Arnold RN Unavailable Unavailable Lázaro Saxena DO Unavailable [phone] Allergies Active Allergy Reactions Criticality Noted [...] By the time he had presented to [facility] he has his sensorium it normalized. During his hospitalization he underwent cerebrovascular and cardiovascular evaluations in addition to EEG, CT, and MRI all of which was normal. He remained cognitively normal during his hospitalization. He was ultimately discharged home on treatment for hypertension hypercholesterolemia and an aspirin daily which he has continued since and has remained asymptomatic. From review of his [facility] records it appears that there was suspicion [...] Adjuvanted 06/16/2022,1 Pneumococcal conjugate PCV20 , polysaccharide HIR251 conjugate, adjuvant, PF 06/27/2022 TDAP Vaccine 05/06/2021 [...] AM CDT Legal Sex Male 3:54 PM RESTAURANT FRONT MANAGER Gender Identity Male 04/25/2023 8:39 AM CDT Sexual Orientation Not on file Last Filed Vital Signs Vital Sign Reading Time Taken Comments Blood Pressure 138/70 10/10/2023 8:11 AM RESTAURANT FRONT MANAGER Pulse 89 10/10/2023 8:11 AM RESTAURANT FRONT MANAGER Temperature 36.3 C (97.3 F) 10/10/2023 8:11 AM RESTAURANT FRONT MANAGER Respiratory Rate 18 10/10/2023 8:11 AM RESTAURANT FRONT MANAGER Oxygen Saturation 97% 10/10/2023 8:11 AM RESTAURANT FRONT MANAGER Inhaled Oxygen Concentration - - Weight 101.2 kg (223 lb 3.2 oz) 10/10/2023 8:11 AM RESTAURANT FRONT MANAGER Height 177.8 cm (5' 10) 10/10/2023 8:11 AM RESTAURANT FRONT MANAGER Body Mass Index 32.03 10/10/2023 8:11 AM RESTAURANT FRONT MANAGER Plan of Treatment Health Maintenance Due Date [...] (COMPREHENSIVE METABOLIC PANEL) Routine 10/10/2023 8:02 AM RESTAURANT FRONT MANAGER Prostate cancer (HCC) HEMOGLOBIN A1C [place] 1453 Routine 06/21/2022 9:26 AM CDT from Last 3 Months or Most Recently Relevant to Health Maintenance Results * (ABNORMAL) CMP (COMPREHENSIVE METABOLIC PANEL) (10/10/2023 8:02 AM RESTAURANT FRONT MANAGER) Glucose 204(H) 70 - 105 mg/dL [facility] Blood Urea Nitrogen 21 7 - 25 mg/dL [facility] Creatinine 0.8 0.7 - 1.3 mg/dL [facility] Sodium 143 136 - 145 mEq/L [facility] Potassium 4.4 3.5 - 5.1 mEq/L [facility] Chloride 105 98 - 107 mEq/L [facility] Bicarbonate 31 21 - 31 mEq/L [facility] Total Bilirubin 0.4 0.3 - 1.0 mg/dL [facility] Alk. Phosphatase 71 34 - 104 U/L [facility] Aspartate Aminotransferase 9(L) 13 - 39 U/L [facility] Alanine Aminotransferase 10 7 - 52 U/L [facility] Total Protein 6.3(L) 6.4 - 8.9 g/dL [facility] Albumin 3.7 3.5 - 5.7 g/dL [facility] Calcium 9.0 8.6 - 10.3 mg/dL [facility] Anion Gap 11.4 7.0 - 15.0 mEq/L [facility] Globulin 2.6 2.0 - 3.5 g/dL [facility] EGFR 94 >60 ml/min/1. 73m2 [facility] Comment: This eGFR is calculated using 2020 CKD-EPI Creatinine equation without race modifier based on the NKF-ASN task force recommendations Blood 10/10/2023 8:02 AM RESTAURANT FRONT MANAGER Narrative [facility] - 10/10/2023 9:00 AM RESTAURANT FRONT MANAGER Release to patient->Immediate IS THE PATIENT REQUIRED TO BE FASTING FOR 8 HOURS?->No Lyly Acharya APRN, PLASMA CUTTING MACHINE OPERATOR CHEMISTRY ORDERABLES Final Result Performing Organization Address [facility] Co de Phone Number [facility]DL[facility] [address] [place] [address], * (ABNORMAL) HEMOGLOBIN A1C [place] 1453 (06/21/2022 9:26 AM CDT) HEMOGLOBIN A1C 7.5(H) 4.8 - 5.6 % [facility] Comment: PREDIABETES: 5.7 - 6.4 DIABETES: >6.4 GLYCEMIC CONTROL FOR ADULTS WITH DIABETES: <7.0 06/21/2022 9:26 AM CDT Narrative [facility] - 06/22/2022 4:06 AM CDT TESTING PERFORMED AT: [] [facility], [address] [place] [address], [place], [address], PHONE: [phone], CYBER SYSTEMS OPERATIONS SPECIALIST: EDISON GARCÍA, PHD us Lázaro Saxena DO LAB SEND OUTS Final Result [facility] from Last 3 Months or Most Recently Relevant to Health Maintenance Insurance MEDICARE [facility] [place] [id number] Advance Directives * Full Code (Latest Code Status on File) Date Activated Date Inactivated Comments 09/28/2021 9:00 AM PER 09/21/21 OF FICE VISIT NOTE. Care Teams Shelter Case Manager Relationship Specialty Start Date End Date Natividad Almanza, FUEL HANDLER, PLASMA CUTTING MACHINE OPERATOR [address] [address] PCP - General Advanced Practice Nurse 09/13/21 Ludy Arnold RN [place] Oncology Nurse Navigator Oncology 10/04/21 Lázaro Saxena DO [address] [place] [address] Consulting Physician Oncology 02/28/23
--- OUTSIDE RECORDS SUMMARY | 2025-03-27 17:01 | XMS_ITS ---
Author Organization [facility] Address [address], [place] [address] [place] [address] Phone Care Team Providers Care Insurance Account Specialist Name Role Phone Natividad Almanza APRN, DIE REPAIRER TRIMMER DIES Primary Care Provid er Ludy Arnold RN Unavailable Unavailable Hemanth Lázaro D DO Unavailable [phone] Active Problems Problem Noted Date Diagnosed Date Prostate cancer 09/21/2021 Hx of transient ischemic attack (TIA) 08/02/2021 Diabetes mellitus 02/02/2021 Hypertension 11/03/2020 Transient alteration of awareness 05/31/2020 Overview (12/27/2021): Last Assessment & Plan: Patient experienced a recent transient alteration of awareness lasting about 30 minutes. By the time he had presented to [facility] he has his sensorium it normalized. During his hospitalization he underwent cerebrovascular and cardiovascular evaluations in addition to EEG, CT, and MRI all of which was normal. He remained cognitively normal during his hospitalization. He was ultimately discharged home on treatment for hypertension hypercholesterolemia and an aspirin daily which he has continued since and has remained asymptomatic. From review of his [facility] records it appears that there was [...]
--- OUTSIDE RECORDS SUMMARY | 2025-03-27 17:01 | XMS_ITS | Encounter Summary ---
Author Organization [facility] Address [facility] [place] [address] Care Team Providers Care Exercise Equipment Specialist Name Role Phone Natividad Almanza NP Primary Care Provider [phone] Lázaro Saxena DO Unavailable [phone] Carmelo Kent MD Unavailable Lázaro Saxena DO Unavailable [phone] Encounter Details Date Type Department Care Team (Late st Contact Info) Description 09/01/2021 24 Media Network Message Enc [facility] Multispecialty Care - [facility] [address] [place] [address] Dylan Castaneda MD Cat scan [...] Sex Assigned at Male 11/12/2024 7:19 AM WATERMASTER Legal Sex Male 4:09 PM WATERMASTER Gender Identity Not on file Sexual Orientation Not on file COVID-19 Exposure Response Date Recorded In the last month, have you been in contact with someone who was confirmed or suspected to have Coronavirus / COVID-19? No / Unsure 08/20/2021 10:58 AM WATERMASTER documented as of this encounter Plan of Treatment Upcoming Encounters Date Type Department Care Team (Late st Contact Info) Description 05/14/2025 8:00 AM CDT Office Visit [facility] [address] [facility] [address] [place] [address] Natividad Almanza NP [address] [place] [address] 08/19/2025 9:30 AM WATERMASTER Appointment [facility] Radiation Oncology [address] [place] [address] Carmelo Kent MD [address] [place] [address] [address] [place] [address] 03/24/2026 10:30 AM CDT Office Visit [facility] [address] [address] Natividad Almanza NP [address] [place] [address] documented as of this encounter Visit Diagnoses Not on filedocumented in this encounter Additional Health Concerns Assessment Noted Time PHQ-9 Depression Total Score: 0 08/20/20 21 11:36 AM WATERMASTER documented as of this encounter Care Teams Exercise Equipment Specialist Relationship Specialty Start Date End Date Natividad Almanza NP [address] [address] PCP - General NURSE PRACTITIONER 03/09/21 Lázaro Saxena DO [address] [place] [phone] Consulting Physician MEDICAL ONCOLOGY 09/13/21 10/14/22 Carmelo Kent MD [address] [place] [address] Consulting Physician RADIATION ONCOLOGY 02/06/24 Lázaro Saxena DO 1 [place] [address] Consulting Physician ONCOLOGY 02/13/24 [facility] [address] [place] [address] 02/02/25 documented as of this encounter
--- OUTSIDE RECORDS SUMMARY | 2025-03-27 17:01 | XMS_ITS | Encounter Summary ---
Author Organization [facility] Address [address] [place] [address] Phone Care Team Providers Care Design Chief Name Role Phone Natividad Almanza APRN, PLATFORM MATERIAL HANDLING SUPERVISOR Primary Care Provid er Ludy Arnold RN Unavailable Unavailable Lázaro Saxena DO Unavailable [phone] Reason for Visit * Reason Comments Medication Refill Encounter Details Date Type Department Care Team (Late st Contact Info) Description 07/04/2023 Refill [facility] [address] [place] [phone] Sarah Song, GAURANG, PLATFORM MATERIAL HANDLING SUPERVISOR [address] [place] [address] Medication Refill Social History Tobacco Use [...] AM CDT Legal Sex Male 3:54 PM PEDAL ASSEMBLER Gender Identity Male 04/25/2023 8:39 AM CDT [...] prostate documented in this encounter Care Teams Design Chief Relationship Specialty Start Date End Date Natividad Almanza, INTERACTIVE ART DIRECTOR, PLATFORM MATERIAL HANDLING SUPERVISOR [address] [place] [address] PCP - General Advanced Practice Nurse 09/13/21 Ludy Arnold RN [place] Oncology Nurse Navigator Oncology 10/04/21 Lázaro Saxena DO [address] [place] [phone] Consulting Physician Oncology 02/28/23 documented as of this encounter
--- OUTSIDE RECORDS SUMMARY | 2025-03-27 17:01 | XMS_ITS | Encounter Summary ---
Author Organization [facility] Address [address] [place] [address] Phone Care Team Providers Care Financial Engineer Name Role Phone Natividad Almanza APRN, CREW CLERK Primary Care Provid er Ludy Arnold RN Unavailable Unavailable Lázaro Saxena DO Unavailable [phone] Reason for Visit * Reason Comments Medication Refill Encounter Details Date Type Department Care Team (Late st Contact Info) Description 08/18/2023 Refill [facility] [address] [place] [address] Lázaro Saxena, DO [address] [place] [address] Medication Refill Social History Tobacco [...] AM CDT Legal Sex Male 3:54 PM BUSINESS OBJECTS Gender Identity Male 04/25/2023 8:39 AM CDT Sexual Orientation Not on file documented as of this encounter Miscellaneous Notes * Telephone Encounter - Carleen Ortega RN - 08/18/2023 8:15 AM CST Refill request from pharmacy. Please fill if appropriate. NESS OBJECTS documented in this encounter Plan of Treatment Not on file documented as of this encounter Visit Diagnoses Not on filedocumented in this encounter Care Teams Financial Engineer Relationship Specialty Start Date End Date Natividad Almanza, SHRIMP TRAWLER CAPTAIN, CREW CLERK [address] [place] [address] PCP - General Advanced Practice Nurse 09/13/21 Ludy Arnold, [place] Oncology Nurse Navigator Oncology 10/04/21 Lázaro Saxena DO [address] [facility] [place] [phone] Consulting Physician Oncology 02/28/23 documented as of this encounter
--- OUTSIDE RECORDS SUMMARY | 2025-03-27 17:01 | XMS_ITS | Encounter Summary ---
Author Organization [facility] Address [address] [place] [address] Phone Care Team Providers Care Owner Professional Engineer Name Role Phone Natividad Almanza APRN, MANAGER ADMINISTRATIVE Primary Care Provid er Ludy Arnold RN Unavailable Unavailable Lázaro Saxena DO Unavailable Reason for Visit * Reason Comments Medication Refill Encounter Details Date Type Department Care Team (Late st Contact Info) Description 03/01/2023 Refill [facility] [address] [address] Tomasa Figueroa, PAC Medication Refill [...] AM CDT Legal Sex Male 3:54 PM ESCROW OFFICER Gender Identity Male 04/25/2023 8:39 AM CDT [...] on filedocumented in this encounter Care Teams Owner Professional Engineer Relationship Specialty Start Date End Date Natividad Almanza APRN, MANAGER ADMINISTRATIVE [address] [place] [address] PCP - General Advanced Practice Nurse 09/13/21 Ludy Arnold RN [place] Oncology Nurse Navigator Oncology 10/04/21 Lázaro Saxena DO [address] [place] [phone] Consulting Physician Oncology 02/28/23 documented as of this encounter
--- OUTSIDE RECORDS SUMMARY | 2025-03-27 17:01 | XMS_ITS | Clinical Summary ---
Author Organization [facility] [place] [facility] Address [address] [place] [address] Care Team Providers Care Fly Raiser Lockstitch Name Role Phone Corby Brown MD Primary Care Provider [phone] Allergies No known active allergies Medications lisinopriL [...] 07/21/2020 Assessment & Plan (07/21/2020 3:22 PM ANCILLARY SERVICES MANAGER): Patient experienced a recent transient alteration of awareness lasting about 30 minutes. By the time he had presented to [facility] he has his sensorium it normalized. [...] on file Legal Sex Male 12:54 AM ANCILLARY SERVICES MANAGER Gender Identity Not on file Sexual Orientation Not on file Obstetrics History Last Filed Vital Signs Vital Sign Reading Time Taken Comments Blood Pressure 118/66 07/21/2020 2:25 PM ANCILLARY SERVICES MANAGER Pulse 92 07/21/2020 2:25 PM ANCILLARY SERVICES MANAGER Temperature 36.4 C (97.5 F) 07/21/2020 2:25 PM ANCILLARY SERVICES MANAGER Respiratory Rate - - Oxygen Saturation - - Inhaled Oxygen Concentration - - Weight 102.8 kg (226 lb 9.6 oz) 07/21/2020 2:25 PM ANCILLARY SERVICES MANAGER Height 180.3 cm (5' 11) 07/21/2020 2:25 PM ANCILLARY SERVICES MANAGER Body Mass Index 31.6 07/21/2020 2:25 PM ANCILLARY SERVICES MANAGER Plan of Treatment Not on file Insurance COMMERCIAL GENERIC MEDICARE MEDICARE COMMERCIAL GENERIC Care Teams Fly Raiser Lockstitch Relationship Specialty Start Date End Date Corby Brown MD [address] [place] [address] PCP - General Family Medicine 07/21/20
--- OUTSIDE RECORDS SUMMARY | 2025-03-27 17:02 | XMS_ITS ---
Author Organization [facility] Address [facility] [place] [address] Care Team Providers Care Mobility Manager Name Role Phone Natividad Almanza NP Primary Care Provider [phone] Carmelo Kent MD Unavailable Lázaro Saxena DO Unavailable [phone] Active Problems Problem Noted Date Diagnosed Date Dysuria 05/31/2022 Hx of transient ischemic attack (TIA) 08/02/2021 Prediabetes 08/02/2021 Positive colorectal cancer screening using Colog uard test 05/26/2021 Overview (05/26/2021): Added automatically from request for surgery [id number] Type 2 diabetes mellitus wit hout complication, without long-term current use of insulin ([facility]) 02/02/2021 Overview (11/11/2024): AIC in June was [...] changes. Assessment & Plan (11/11/2024 8:17 AM SUPERVISING EDITOR NEWS REEL): A1C today is 6.0. No changes needed [...] colonoscopy, repeat in 5 years Prostate cancer ([facility]) Current Treatment and Therapy Plans No current plan information found. Past Treatment and Therapy Plans No past plan information found. Radiation Treatments * Course C1 10/20/2021 - 11/26/2021 Treatment Period Energy Fraction Dose Fractions Total Dose Plans Planned Prostate+LN 10/20/2021 - 11/26/2021 28 of 28 / Reference Points Delivered Prstate+Nodes 10/20/2021 - 11/26/2021 [id number] 01 Treatment Summaries Prostate cancer ([facility])* Images from the original note were not included. Survivorship Care Plan Patient Name Denny Mccray Date of 1950 Plan Completed By Lynne CORREA on 05/20/22 Care Team Medical Oncologist Dr. Saxena [phone] Radiation Oncologist No care merchandise team manager to display [phone] Primary Care Physician NATIVIDAD ALMANZA NP [phone] Nurse Navigator Lynne CORREA [phone] Diagnosis Prostate cancer (CMS/HCC) Age at diagnosis [...] should resolve within 2-4 weeks after completion. USP side effects may include a mild increase in stool and urinary frequency and potentially urgency. These symptoms are often intermittent and occur in 25-30% of men who receive radiation treatment for prostate carcinoma. In frequent residential side effects can include blood in the [...] advance care planning, appointing a power of deputy grand jury and completing a will) Please discuss on [...] Resources National USTOO for Prostate cancer https://www.ustoo.org https://www.cancer.org/cancer/prostate-cancer/about/gnst-cx-wzjlrhbb-cancer.html Go to Our Services on this site, then Support You can join a Phone Support group Join an Online Support Group Get one to one support Helpline Financial assistance help National Comprehensive Cancer Network https://www.cancer.org/cancer/prostate-cancer/about/nmuq-db-lfzqkcgz-cancer.html Prostate cancer National Comprehensive Cancer Network https://www.nccn.org/patients/guidelines/prostate/index.html National Cancer [place] www.cancer.gov [place] Society of Clinical Oncology (ASCO) www.cancer.net National Coalition for Cancer Survivorship (NCCS) www.canceradvocacy.org Needy Meds www.FanFound.PhatNoise Urology http://urologyhealth.org/educational-materials Visit Cancer.Net's survivorship section provides helpful information for cancer survivors and theirfriends and family. Download the ASCO Answers Guide to Cancer Survivorship for free as a printable pdf National Coalition for Cancer Survivorship (NCCS) www.canceradvocacy.org Survivorship: What Happens After Active Treatment Ends (View Video) https://youtu.be/EKKr0Bi4G6w Guidelines for Prostate cancer Treatment Patient Booklet https://www.nccn.org/patients/guidelines/prostate/index.html Urology http://urologyhealth.org/educational-materials www.Hidden City Games.org RockeTalk Information and resources, and suport,plus access to helpful forums and chat rooms. www.Bizily Aging and Disability Resource Center https://www.dhs.[place].gov/adrc/consumer/index.htm (ADRC) [place] Cancer Society www.cancer.org Cancer Care, Inc www.cancercare.org Cancer Support Community www.cancersupportcommunity.org Livestrong http://www.livestrong.org/what-we-do/our-actions/livestrong-programs/ymca/ Resolved Problems Problem Noted Date Diagnosed Date Resolved Date Screening for colon cancer 05/26/2021 1 10/02/2020 Overview (05/26/2021): Added automatically from request for surgery [id number] Syncope 05/30/2020 08/02/2021
--- OUTSIDE RECORDS SUMMARY | 2025-03-27 17:02 | XMS_ITS | Encounter Summary ---
Author Organization [facility] Address [address] [place] [address] Phone Care Team Providers Care Ground Support Equipment Assembler Name Role Phone Natividad Almanza APRN, PER DIEM RN Primary Care Provid er Ludy Arnold RN Unavailable Unavailable Lázaro Saxena DO Unavailable [phone] Reason for Visit * Reason Comments Medication Refill Encounter Details Date Type Department Care Team (Late st Contact Info) Description 11/19/2021 Refill [facility] [address] [place] [address] Lázaro Saxena, DO [address] [place] [address] Medication Refill Social History Tobacco [...] AM CDT Legal Sex Male 3:54 PM MILK HANDLER Gender Identity Male 04/25/2023 8:39 AM CDT Sexual Orientation Not on file COVID-19 Exposure Response Date Recorded In the last month, have you been in contact with someone who was confirmed or suspected to have Coronavirus / COVID-19? No / Unsure 11/16/2021 10:01 AM MILK HANDLER documented as of this encounter Plan of Treatment Not on file documented as of this encounter Visit Diagnoses Not on filedocumented in this encounter Care Teams Ground Support Equipment Assembler Relationship Specialty Start Date End Date Natividad Almanza APRN, PER DIEM RN [address] [place] [address] PCP - General Advanced Practice Nurse 09/13/21 Ludy Arnold RN [place] Oncology Nurse Navigator Oncology 10/04/21 Lázaro Saexna DO [address] [place] [phone] Consulting Physician Oncology 02/28/23 documented as of this encounter
--- OUTSIDE RECORDS SUMMARY | 2025-03-27 17:02 | XMS_ITS | Clinical Summary ---
Author Organization [facility] Address [facility] [place] [address] Care Team Providers Care Chief Of Staff Name Role Phone Natividad Almanza NP Primary Care Provider [phone] Carmelo Kent MD Unavailable Lázaro Saxena DO Unavailable [phone] Allergies Active Allergy Reactions Criticality Noted Date Comments Rosuvastatin Other (see comment) Medium 08/02/2021 Leg cramps Medications aspirin EC 81 MG tablet Take 1 tablet (81 mg total) by mouth daily. Active Blood Glucose Monitoring Suppl (ONE TOUCH ULTRA 2) w/Device KitIndications:Typ e 2 diabetes mellitus without complication, without long-term current use of insulin ([facility]) Check blood sugars each morning and evening, also check blood sugars before each meal.1 1 kit 02/25/20 22 Active Lancets (ONETOUCH ULTRASOFT) lancetsIndications :Type 2 diabetes mellitus without complication, without long-term current use of insulin ([facility]) Use 3-4 times a day to check [...] complication, without long-term current use of insulin ([facility]) Take 1 tablet (5 mg total) by [...] Daily,1-2 Tablets depending on urinary frequency at [facility], Reported on 03/11/2025 Glucose Blood (Spark LabsUCH ULTRA TEST) test stripIndications:T ype 2 diabetes mellitus without complication, without long-term current use of insulin ([facility]) 1 strip by Other route as needed. [...] (05/26/2021): Added automatically from request for surgery [id number] Type 2 diabetes mellitus wit hout complication, without long-term current use of insulin ([facility]) 02/02/2021 Overview (11/11/2024): AIC in June was [...] changes. Assessment & Plan (11/11/2024 8:17 AM SIGN POSTER): A1C today is 6.0. No changes needed [...] colonoscopy, repeat in 5 years Prostate cancer ([facility]) Resolved Problems Problem Noted Date Diagnosed Date Resolved Date Screening for colon cancer 05/26/2021 1 10/02/2020 Overview (05/26/2021): Added automatically from request for surgery [id number] Syncope 05/30/2020 08/02/2021 Encounters Date Type Department Care Team Description 03/11/2025 10:30 AM CDT Office Visit [facility] Family Medicine - [place] [address] [facility] [address] [place] [address] Natividad Almanza NP Medicare Wellness (Patient presents today for their Medicare Annual Wellness Visit.) 03/11/2025 Telephone [facility] Family Medicine - [place] [address] [place] [address] Natividad Almanza, ERNESTINA Health Maintenance Follow Up (Request for diabetic eye exam) 03/11/2025 Travel 02/11/2025 Orders Only [facility] Family Medicine - [place] [address] [place] [address] Sherine Villavicencio LPN 02/04/2025 Orders Only [facility] Radiation Oncology [address] [place] [address] Carmelo Kent MD 01/13/2025 Scan [facility] [...] 50 MCG/0.5 ML (SPIKEVAX) 06/02/2024 MODERNA 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 [place] [address] 03/24/2026 10:30 AM CDT Office Visit [facility] Family Medicine - [place] [address] [place] [address] Natividad Almanza, ERNESTINA [address] [place] [address] Health Maintenance Due Date Last Done Comments [...] 06/27/2022 Hepatitis C Completed 02/13/2024 PHQ-2 (Physician [place]) Completed 03/11/2025 Meningococcal B Vaccine Aged Out No l onger eligible based on patient's age to complete this topic Meningococcal Vaccine Aged Out No mary lyly eligible based on patient's age to complete this topic RSV Immunizations Under 20 Months Aged Out No longer eligible based on patient's age to complete this topic Medical Devices Implanted Type Area Repairer Wood Furniture Device Identifier Shelf Expiration Date Model / Serial / Lot Ankle Procedures Procedure Name Priority Date/Time Associated Diagnosis Comments HEMOGLOBIN, GLYCOSYLATED Routine 11/11/2024 Type 2 diabetes mellitus without complication, without long-term current use of insulin ([facility]) LIPID PANEL Routine 07/16/2024 7:49 AM SIGN POSTER Mixed hyperlipidemia DIABETIC RETINOPATHY EXAM (POSITIVE)(SCAN ORDER) Routine 06/12/2024 HEPATITIS C ANTIBODY Routine 02/13/2024 10:25 AM CDT Need for hepatitis C screening test COLOGUARD (EXACT SCIENCE) Routine 03/29/2021 6:20 AM CDT Colon cancer screening from Last 3 Months or Most Recently Relevant to Health Maintenance Results * A1C (BACK OFFICE) (11/11/2024) HGB A1C 6.0 % [address] [place] 11/11/2024 us Natividad Almanza COST ESTIMATING CLERK LABORATORY Final Res ult [address] [address] [place] [address], * (ABNORMAL) LIPID PANEL (07/16/2024 7:49 AM SIGN POSTER) CHOLESTEROL 202(H) <200 MG/DL 07/16/2024 3:08 PM SIGN POSTER [facility] TARI HURST TRIGLYCERIDES 188(H) <150 MG/DL 07/16/2024 3:08 PM SIGN POSTER [facility] NATALI PRESTON HOLLOW HDL 42 >40 MG/DL 07/16/2024 3:08 PM SIGN POSTER [facility] LDL-C 122(H) <100 MG/DL 07/16/2024 3:08 PM [facility] VLDL CALCULATION 38(H) 5 - 28 MG/DL 07/16/2024 3:08 PM [facility] CHOL/HDL RATIO 4.8(H) 0.0 - 4.0 07/16/2024 3:08 PM [facility] LDL/HDL 2.9(H) 0.41 - 2.13 07/16/2024 3:08 PM [facility] NON HDL CHOLESTEROL 160(H) <140 MG/DL 07/16/2024 3:08 PM [facility] 07/16/2024 7:49 AM SIGN POSTER Natividad Almanza COST ESTIMATING CLERK LABORATORY Final Res ult Performing Organization Address [facility] Co de Phone Number [facility] [address] [place] [address], [place] [phone] * DIABETIC RETINOPATHY EXAM (POSITIVE) (06/12/2024) us [facility] Scanned SCANNING Final Resu lt Performing Organization Address [facility] de Phone Number [facility] ONBASE * HEPATITIS C ANTIBODY ([facility] ONLY) (02/13/2024 10:25 AM CDT) HEPATITIS C AB NON-REACTI VE NON-REACT ABDI 02/13/2024 8:43 PM CDT [facility] Comment: ANTIBODIES TO HCV NOT DETECTED. DOES NOT EXCLUDE THE POSSIBILITY OF EXPOSURE TO HCV. 02/13/2024 10:2 5 AM CDT Natividad Almanza COST ESTIMATING CLERK LABORATORY Final Res ult Performing Organization Address [facility] Co de Phone Number [facility] [address] [place] [id number], [id number] * (ABNORMAL) COLOGUARD (Friday) (03/29/2021 6:20 AM CDT) COLOGUARD RESULT Positive( A) Negative [employer] (CLIA #:[id number]) Comment: POSITIVE TEST RESULT. A positive Cologuard [...] (Tracy Mendes al, N Engl J Med 2014;370(14):1881-3817.) Cologuard may produce a false negative or false positive result (no colorectal cancer or precancerous polyp present at colonoscopy follow up). A negative Cologuard test result does not guarantee the absence of CRC or advanced adenoma (pre-cancer). The current Cologuard screening interval is every 3 years. ([place] Cancer Society and U.S. Multi-Society Task Force). Cologuard performance data in a 10,000 patient pivotal study using colonoscopy as the reference method can be accessed at the following location: www.Oxtex/results. Additional description of the Cologuard test process, warnings and precautions can be found at www.cologJolancerrd.com. Stool specimen (specimen) STOOL SPECIMEN / Unknown 03/29/2021 6:20 AM CDT 03/30/2021 6:45 PM CDT Natividad Almanza NP BODY FLUIDS AND STOOLS OR DERABLES Final Result [employer] ([employer] [facility]) [address] [place] [address], [facility] (CLIA #:[id number]) [address] [address] from Last 3 Months or Most Recently Relevant to Health Maintenance Insurance MEDICARE [facility] Advance Directives * Full Code (Latest Code Status on File) Date Activated Date Inactivated Comments 08/12/2021 2:40 PM 08/12/2021 6:46 PM Care Teams Chief Of Staff Relationship Specialty Start Date End Date Natividad Almanza NP [address] [place] [address] PCP - General NURSE PRACTITIONER 03/09/21 Carmelo Kent MD [address] [place] [address] Consulting Physician RADIATION ONCOLOGY 02/06/24 Lázaro Saxena DO [address] [place] [address] Consulting Physician ONCOLOGY 02/13/24 [facility] [address] [place] [address] 02/02/25
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
--- NOTE | 2025-03-27 17:56 | ECG_ITS ---
Test Date: 2025-03-27 18:00:02 Measurements Intervals [place] Rate: 58 P: 1 [place]: 182 QRS: -50 QRSD: 110 T: -29 QT: 424 QTc: 418 Interpretive Statements SINUS BRADYCARDIA INTRAVENTRICULAR CONDUCTION DELAY, INCOMPLETE LEFT BUNDLE BRANCH BLOCK ABNORMAL ECG Compared to ECG 03/27/2025 14:46:39 NO SIGNIFICANT CHANGE Electronically Signed On 03-28-2025 07:37:16 CDT by Aron Lemons M.D.
[2025-03-27 19:04] LABS: Troponin I < 0.012 ng/mL (0.000-0.034)
== END 2025-03-27 19:50 | disposition home or self-care (01) ==
PROVIDERS: Family Medicine; Emergency Provider Emergency Medicine; PCP Nurse Practitioner
DX: S29.9XXA Unspecified injury of thorax, initial encounter (principal); R73.03 Prediabetes; I44.7 Left bundle-branch block, unspecified; I45.9 Conduction disorder, unspecified; R00.1 Bradycardia, unspecified; V49.50XA Passenger injured in collision with unspecified motor vehicles in traffic accident, initial encounter
CPT/HCPCS: 36415; 71046; 80053; 83690; 84484; 85025; 85610; 85730; 93005; 99284; A9270